=== PATIENT | male | born 1965 | race Caucasian/White ===

== ENCOUNTER 2023-11-02 19:40 | Inpatient (IN) | payer OTHER, SELFPAY ==
--- NOTE | ~2023-11-02 | CT_ITS ---
EXAMINATION: CT ABDOMEN AND PELVIS WITHOUT CONTRAST CLINICAL INFORMATION: Flank pain. No rule out kidney stone. COMPARISON: None available. TECHNIQUE: Multidetector volumetric imaging was performed from the superior aspect of the liver through the pubic symphysis. Sagittal and coronal reformatted images were obtained on the technologist's workstation. This CT examination was performed using dose optimization techniques as appropriate, variously including the following: *Automated exposure control *Adjustment of mA and/or kV according to patient size (this includes techniques or standardized protocols for targeted exams where dose is matched to indication/reason for exam; i.e. extremities or head) *Use of iterative reconstruction technique DLP: 615 mGy-cm FINDINGS: LUNG BASES: Mild bibasilar posterior dependent atelectasis. LIVER, GALLBLADDER, AND BILIARY TREE: 1.7 cm diameter eggshell calcification of the gallbladder lumen consistent with cholelithiasis. Normal appearance of the liver. PANCREAS: Unremarkable. SPLEEN: Unremarkable. ADRENAL GLANDS: Unremarkable. KIDNEYS AND URETERS: A single 4.5 mm x 2 mm calculus is present at the right ureterovesicular junction. Moderate-marked right hydronephrosis and ureterectasis is present. Moderate right perinephric inflammatory changes are identified. No additional urolithiasis identified. Incidental note made of a 3.6 cm rounded benign-appearing low-density simple cyst within the right kidney requiring no additional imaging follow-up. BLADDER: Decompressed GASTROINTESTINAL TRACT: The appendix is not visualized. Curvilinear density is present at the base of the cecum and may represent suture material related to prior appendectomy. No free intraperitoneal fluid or gas collections. ABDOMINAL WALL: No significant hernia is appreciated. LYMPH NODES: Normal. VASCULAR: Mild scattered calcific atherosclerosis PELVIC VISCERA: The prostate measures 4 cm in AP dimension, slightly above the expected limits of normal size. OSSEOUS STRUCTURES: Incidental note made of a synovial inclusion cyst associated with the anterior margin of the right femoral head. Partially visualized mild posterior broad-based disc bulge L5-S1. CT/CT abdomen pelvis wo IV con IMPRESSION: 1. Single 4.5 mm x 2 mm calculus at the right ureterovesicular junction associated with moderate-marked right hydronephrosis and ureterectasis. No additional urolithiasis. 2. Cholelithiasis. 3. Mild diffuse enlargement of the prostate. Electronically signed by: Anatoly López MD 11/03/2023 01:50 AM EDT RP
--- NOTE | ~2023-11-02 | XR_ITS ---
EXAMINATION: XR CHEST CLINICAL INFORMATION: Pain COMPARISON: None available. TECHNIQUE: 2 views of the chest were obtained. FINDINGS: No significant abnormality is noted involving the heart, lungs, mediastinum, bony thorax or soft tissues. XR/XR chest 2V IMPRESSION: Unremarkable examination. Electronically signed by: Cindy Zhang MD 11/02/2023 08:34 PM EDT RP
[2023-11-02 19:48] VITALS: BP 114/72; PULSE 104; RESP 18; TEMP 39.6; O2SAT 94; BMI 26.7
--- NOTE | 2023-11-02 19:52 | ED_ITS ---
HPI - General Adult General Chief complaint: General Medical Stated complaint: fever s/p fish sandwich, food poisoning? Time Seen by Provider: 11/03/23 00:17 Source: patient and family Mode of arrival: ambulatory Limitations: no limitations History of Present Illness ED Provider: Dr. Miley Godinez HPI narrative: patient comes to the emergency room accompanied by his . Patient only speaks Irish. According to the patient and his , 2 days ago patient started complaining of nausea vomiting and diarrhea 3 hours after eating a sandwich with smoked salmon. Then patient went to work. At work, patient started feeling very severe right-sided flank pain. Since then it has been constant. Patient was not able to drive home, called his to pick him up. At home, patient developed a fever of 101.1 temporal. Patient took Tylenol, had chills, did not want to come to the emergency room. Eventually the fever did improve but shortly after it restarted along with the pain. Patient's became concerned, called the PCP, asked to come to the emergency room. At this time, patient states that he feels with chills, right-sided abdominal pain/flank pain. Denies hematuria or dysuria. Related Data Allergies Allergy/AdvReac Type Severity Reaction Status Date / Time procaine [From Novocain] Allergy Anaphylaxis Verified 11/02/23 19:58 Review of Systems 2 Review of Systems: Constitutional : No Weight loss, Complaining of fever and chills,No Night Sweats, No Fatigue, No Malaise ENT/Mouth : No Hearing loss, No Ear Pain, No Nasal Congestion, No Sinus Pain, No Hoarseness, No sore throat, No Rhinorrhea, No Swallowing Difficulty Eyes: No Eye Pain, No Swelling, No Redness, No Foreign Body, No Discharge, No Vision Changes Cardiovascular : No Chest Pain, No SOB, No Dyspnea on Exertion, No Orthopnea, No Edema, No Palpitations Respiratory : No Cough, No Sputum, No Wheezing, No Smoke Exposure, No Dyspnea Gastrointestinal : No Nausea, No Vomiting, No Diarrhea, No Constipation, No abdominal Pain, No Hematochezia, No Melena Genitourinary : no irregular bleeding, No Dysuria, No Urinary Frequency, No Hematuria, No Urinary Incontinence, No Urgency, complaining of right-sided Flank Pain, No Urinary Flow Changes, No Hesitancy Musculoskeletal : No joint pain, No Myalgias, No Joint Swelling Skin : No Skin Lesions, No rash Neuro : No Weakness, No Numbness, No Paresthesias, No Loss of Consciousness, No Dizziness, No Headache Psych : No Anxiety/Panic, No Depression, No SI/HI/AH/VH, No Social Issues, Heme/Lymph: No Bruising, No Bleeding,No Lymphadenopathy Endocrine : No Polyuria, No Polydipsia, No Temperature Intolerance PMFSH Social History Social History Advance Directives: No Advance Directives Information Provided: Yes Do you have a plan to hurt others: No Plan Physical Exam ED Vital Signs: Vital Signs - 24 hr 11/02/23 19:48 11/03/23 00:26 Temperature 103.2 F H 98.2 F Pulse Rate 104 H 73 Respiratory Rate 18 16 Blood Pressure 114/72 115/73 Pulse Oximetry 94 95 Oxygen Delivery Method Room Air Room Air BMI result Body Mass Index 26.7 Course Course Course Narrative: RME, this is a rapid medical exam performed by Jaylen Ruano please refer to primary provider for complete H&P- 58-year-old male presents for evaluation of fever, generalized abdominal pain and weakness. He is status post appendectomy. Denies any coughing. His temp is a 103.2?. Plan for labs, UA, chest x-ray, viral swabs Medications Administered Discontinued Medications Generic Name Dose Route Start Last Admin Trade Name Roberto Carlosq PRN Reason Stop Dose Admin Acetaminophen 975 mg 11/02/23 19:55 11/02/23 20:12 Acetaminophen 325 Mg Tablet PO 11/02/23 19:56 975 mg ONCE ONE Administration Sodium Chloride 2,599.08 mls @ 2,599.08 mls/hr 11/03/23 00:16 11/03/23 00:40 Ns 30 ml/kg infuse over 1 hr (2599.08 ml) 11/03/23 01:15 2,599.08 mls/hr IV Administration .Q1H STA Ceftriaxone Sodium 1 gm/ 50 mls @ 100 mls/hr 11/03/23 00:16 11/03/23 00:39 Sodium Chloride IV 11/03/23 00:45 100 mls/hr ONCE ONE Administration Medical Decision Making Medical Decision Making [facility] Narrative: my interpretation of labs: White blood cell count 12.9, LFTs and lipase no significant abnormality. Urine positive for UTI. Serology negative for influenza RSV and COVID. - My interpretation of CT scan: Right ureterolithiasis with right hydronephrosis - I discussed the above-mentioned with the patient, patient is to be admitted, agrees with plan. - I discussed the patient with Dr. Chance, patient accepted to the medicine service Differential Diagnosis Differential Diagnoses: The differential diagnosis associated with the presentation includes ( UTI, pyelonephritis, ureterolithiasis) Admission/Observation Consideration of admission/observation: Escalation of care including admission/observation considered Consult Healthcare Provider Management of the patient was discussed with: Hospitalist Lab Data MDM Lab Attestation statement: I reviewed the patient's lab results. 11/02/23 20:38 11/02/23 20:37 Labs: Lab Results 11/02/23 11/02/23 11/03/23 Range/Units 20:37 20:38 00:36 WBC 12.9 H (4.8-10.8) X10*3/uL RBC 5.23 (4.60-5.80) X10*6/uL Hgb 16.0 (14.0-18.0) g/dl Hct 46.4 (42.0-52.0) % MCV 88.7 (80.0-98.0) fL MCH 30.6 (27.0-33.0) pg MCHC 34.5 (31.0-36.0) g/dl RDW 12.9 (11.0-16.0) % Plt Count 89 L (160-400) X10*3/uL MPV 11.5 (9.4-12.4) fL Immature Gran % (Auto) 1.0 H (0.0-0.4) % Neut % (Auto) 87.5 H (45-73) % Lymph % (Auto) 3.6 L (20-40) % [place] % (Auto) 6.5 (2-11) % Eos % (Auto) 0.9 (0-4) % Baso % (Auto) 0.5 (0-2) % Lymph # (Auto) 0.5 L (1.2-4.9) X10*3/uL [place] # (Auto) 0.8 (0.1-1.2) X10*3/uL Eos # (Auto) 0.1 (0.0-0.4) X10*3/uL Baso # (Auto) 0.1 (0.0-0.2) X10*3/uL Abs Immat Gran (auto) 0.13 H (0.00-0.03) X10*3/uL Absolute Neuts (auto) 11.3 H (2.0-8.3) x10*3/uL Absolute Nucleated RBC 0.000 (0.0-0.012) X10*3/uL Nucleated RBC % (auto) 0.0 (0.0-0.2) /100WBC Smear Tech's Comments VERIFIED Sodium 136 (135-145) mmol/L Potassium 3.7 (3.3-5.1) mmol/L Chloride 105 (96-108) mmol/L Carbon Dioxide 21 L (22-29) mmol/L Anion Gap 14 (12-20) BUN 21 H (9-16) mg/dL Creatinine 1.71 H (0.5-1.4) mg/dL Estim Creat Clear Calc 47.4 Estimated GFR 41 Random Glucose 114 (60-115) mg/dL Lactic Acid 1.5 1.1 (0.5-2.0) mmol/L Calcium 9.4 (8.4-10.2) mg/dL Total Bilirubin 1.8 H (0.0-1.0) mg/dL AST 20 (5-37) U/L ALT 15 (0-40) U/L Alkaline Phosphatase 57 (39-117) U/L Total Protein 7.1 (6.5-8.0) g/dL Albumin 4.2 (3.5-5.0) g/dL Lipase 6 L (8-78) U/L Urine Color Dark Yellow Urine Appearance Turbid Urine pH 5.5 (5.0-9.0) Ur Specific [place] 1.025 (1.005-1.025) Urine Protein 100 (2+) H (Neg-Trace) mg/dL Urine Glucose (UA) Negative (Negative) mg/dL Urine Ketones Trace (Negative) mg/dL Urine Blood Large (3+) H (Negative) Urine Nitrite Positive H (Negative) Ur Leukocyte Esterase Large (3+) H (Negative) Urine RBC 3-5 H (0-2) /HPF Urine WBC >50 H (0-5) /HPF Ur Squamous Epith Cells 3-5 (0-2) /HPF Urine Bacteria 4+ (None Seen) Hyaline Casts 0-2 (0-2) /LPF Influenza Type A (PCR) NEGATIVE (Negative) Influenza Type B (PCR) NEGATIVE (Negative) RSV RNA Qual (PCR) NEGATIVE (Negative) SARS-CoV-2 RNA (RT-PCR) NEGATIVE (Negative) Independent Interpretation I performed an independent interpretation of an: CT Scan Radiology Impression Discussion of test interpretation with radiology: I have reviewed the radiologist's reading. Radiologist Impression: FINDINGS: LUNG BASES: Mild bibasilar posterior dependent atelectasis. LIVER, GALLBLADDER, AND BILIARY TREE: 1.7 cm diameter eggshell calcification of the gallbladder lumen consistent with cholelithiasis. Normal appearance of the liver. PANCREAS: Unremarkable. SPLEEN: Unremarkable. ADRENAL GLANDS: Unremarkable. KIDNEYS AND URETERS: A single 4.5 mm x 2 mm calculus is present at the right ureterovesicular junction. Moderate-marked right hydronephrosis and ureterectasis is present. Moderate right perinephric inflammatory changes are identified. No additional urolithiasis identified. Incidental note made of a 3.6 cm rounded benign-appearing low-density simple cyst within the right kidney requiring no additional imaging follow-up. BLADDER: Decompressed GASTROINTESTINAL TRACT: The appendix is not visualized. Curvilinear density is present at the base of the cecum and may represent suture material related to prior appendectomy. No free intraperitoneal fluid or gas collections. ABDOMINAL WALL: No significant hernia is appreciated. LYMPH NODES: Normal. VASCULAR: Mild scattered calcific atherosclerosis PELVIC VISCERA: The prostate measures 4 cm in AP dimension, slightly above the expected limits of normal size. OSSEOUS STRUCTURES: Incidental note made of a synovial inclusion cyst associated with the anterior margin of the right femoral head. Partially visualized mild posterior broad-based disc bulge L5-S1. CT/CT abdomen pelvis wo IV con IMPRESSION: 1. Single 4.5 mm x 2 mm calculus at the right ureterovesicular junction associated with moderate-marked right hydronephrosis and ureterectasis. No additional urolithiasis. 2. Cholelithiasis. 3. Mild diffuse enlargement of the prostate. Critical Care Time Critical Care Time Critical Care Time: Yes Total Critical Care Time: 60 Attestation: I have personally provided critical care time. Time includes review of lab data, radiology results, discussion with consultants, and monitoring for potential decompensation. Intervention performed as documented. Discharge Plan Discharge Clinical Impression: Ureterolithiasis, Acute pyelonephritis Patient Disposition: Admitted As Inpatient Print Language: Honduran
[2023-11-02] MEDS: Acetaminophen 325 MG TABLET 975 MG PO (20:12)
[2023-11-02 20:50] LABS: Appearance Urine Turbid; Color Urine Dark Yellow; Glucose Urine UA Negative (Negative); Leukocyte Esterase Urine Large (3+) (Negative); Nitrite Urine Positive (Negative); PH 5.5 (5.0-9.0); Specific Gravity - Urine 1.025 (1.005-1.025); UMIC TRIGGER UACC YES; Urine Blood Large (3+) (Negative); Urine Ketones Trace mg/dL (Negative); Urine Protein 100 (2+) mg/dL (Neg-Trace)
[2023-11-02 20:55] LABS: Monocytes Percent Auto 6.5 % (2-11); PLT CLUMP 1; Red Cell Distribution Width 12.9 % (11.0-16.0); SCAN SMEAR FLAG 1
[2023-11-02 20:57] LABS: Lactic Acid 1.5 mmol/L (0.5-2.0)
[2023-11-02 20:57] LABS: Basophils Absolute Auto 0.1 X10*3/uL (0.0-0.2); Basophils Percent Auto 0.5 % (0-2); Eosinophils Absolute Auto 0.1 X10*3/uL (0.0-0.4); Eosinophils Percent Auto 0.9 % (0-4); Hematocrit 46.4 % (42.0-52.0); Imm Gran Abs Auto 0.13 X10*3/uL (0.00-0.03); Lymphocytes Absolute Auto 0.5 X10*3/uL (1.2-4.9); Lymphocytes Percent Auto 3.6 % (20-40); MANUAL DIFF FLAG SCAN; Mean Corpuscular HGB Conc 34.5 g/dl (31.0-36.0); Mean Corpuscular Hemoglobin 30.6 pg (27.0-33.0); Mean Corpuscular Volume 88.7 fL (80.0-98.0); Mean Platelet Volume 11.5 fL (9.4-12.4); Monocytes Absolute Auto 0.8 X10*3/uL (0.1-1.2); Neutrophils Absolute Auto 11.3 x10*3/uL (2.0-8.3); Neutrophils Percent Auto 87.5 % (45-73); Red Blood Count 5.23 X10*6/uL (4.60-5.80)
[2023-11-02 21:02] LABS: Alanine Aminotransferase 15 U/L (0-40); Albumin Level 4.2 g/dL (3.5-5.0); Alkaline Phosphatase 57 U/L (39-117); Anion Gap 14 (12-20); Aspartate Amino Transferase 20 U/L (5-37); Bilirubin Total 1.8 mg/dL (0.0-1.0); Blood Urea Nitrogen 21 mg/dL (9-16); Calcium 9.4 mg/dL (8.4-10.2); Carbon Dioxide 21 mmol/L (22-29); Chloride 105 mmol/L (96-108); Creatinine Clr Calc Pharmacy 47.4; Estimated Glomerular Filt Rate 41; Glucose Random 114 mg/dL (60-115); Lipase 6 U/L (8-78); Potassium 3.7 mmol/L (3.3-5.1); Sodium 136 mmol/L (135-145); Total Protein 7.1 g/dL (6.5-8.0)
[2023-11-02 21:13] LABS: Platelet Count 89 X10*3/uL (160-400); White Blood Count 12.9 X10*3/uL (4.8-10.8)
[2023-11-02 21:24] LABS: Influenza A PCR NEGATIVE (Negative); Influenza B PCR NEGATIVE (Negative); Resp Syncy Virus RNA Qual PCR NEGATIVE (Negative); SARS COV2 PCR INHOUSE NEGATIVE (Negative)
[2023-11-02 21:29] LABS: Bacteria Urine 4+ (None Seen); Hyaline Casts Urine 0-2 /LPF (0-2); UACC Culture Trigger YES; WBC Urine >50 /HPF (0-5)
[2023-11-02 21:38] LABS: SLIDE REVIEW VERIFIED
[2023-11-03] VITALS (8 sets, daily range): BP systolic 115–143; BP diastolic 73–80; PULSE 73–93; RESP 14–20; TEMP 36.8–38.1; O2SAT 92–99
[2023-11-03] MEDS: cefTRIAXone sodium 1 GM in 0.9 % Sodium Chloride 50 ML IV (00:39)
[2023-11-03 00:54] LABS: Lactic Acid 1.1 mmol/L (0.5-2.0)
--- OUTSIDE RECORDS SUMMARY | 2023-11-03 01:19 | XMS_ITS | Continuity of Care Document ---
Author Organization [facility] Adult Address [address] [place] [address]- Care Team Providers Care Luster Applicator Name Role Phone Sho Lyman NP Primary Care Physician Encounter [facility] Date(s): 11/28/20 - 12/28/20 [facility] [address] [place] [id number] Allergies, Adverse Reactions, Alerts Substance Reaction Severity Status lidocaine Active Novocain Active Immunizations Given and Recorded Vaccine Date Status Refusal Reason Hepatitis A Adult Vaccine 01/31/18 Recorded Hepatitis A Adult Vaccine 04/28/17 Recorded Medications aspirin 81 mg oral tablet 1 tablet = 81 mg, By Mouth, Daily, 0 Refills, Maintenance, 10/14/17 8:35:15 EDT Start Date: 10/14/17 Status: Ordered Fish Oil By Mouth, 0 Refills, Maintenance, 09/25/20 11:00:00 EDT, Partial fill upon patient request if the prescription is for a schedule II opioid drug. Start Date: 09/25/20 Status: Ordered Multivitamin Tablet By Mouth, Daily, 0 Refills, Maintenance, 10/14/17 8:35:06 EDT Start Date: 10/14/17 Status: Ordered Problem List Condition Effective Dates Status Health Status Inform ant Liver cirrhosis(Confirmed) Active Gall stones(Confirmed) Active History of TB (tuberculosis)(Confirmed) Active Hepatitis C virus infection cured after antiviral drug therapy(Confirmed) Active Hepatic steatosis(Confirmed) Active Tobacco use(Confirmed) Active Social History Social History Type Response Smoking Status Former smoker, quit more than 30 days ago; Other: Pt quit smoking 09/2020; entered on: 10/15/20 Sex
--- OUTSIDE RECORDS SUMMARY | 2023-11-03 01:19 | XMS_ITS | Continuity of Care Document ---
Author Organization [facility] Adult Address [address] [place] [address]- Care Team Providers Care Strip Presser Name Role Phone Tabatha Pulido Primary Care Physician En[place] [facility] Date(s): 11/09/19 - 12/09/19 [facility] [address] [place] [address] [facility] Allergies, Adverse Reactions, Alerts Substance Reaction Severity Status Novocain Active Medications aspirin 81 mg oral tablet 1 tablet = 81 mg, By Mouth, Daily, 0 Refills, Maintenance, 10/14/17 8:35:15 EDT Start Date: 10/14/17 Status: Ordered Multivitamin Tablet By Mouth, Daily, 0 Refills, Maintenance, 10/14/17 8:35:06 EDT Start Date: 10/14/17 Status: Ordered Social History Social History Type Response Smoking Status Current every day sm oker; Tobacco user in household: No entered on: 10/14/17 Sex
--- OUTSIDE RECORDS SUMMARY | 2023-11-03 01:20 | XMS_ITS | Continuity of Care Document ---
Author Organization [facility] Address [address] [place] [address]- Care Team Providers Care Power Reactor Supervisor Name Role Phone Tabatha Pulido Primary Care Physician Encounter [facility] Date(s): 11/05/19 - 12/05/19 [facility] [address] [place] [phone]- [facility] Allergies, Adverse Reactions, Alerts Substance Reaction [...]
--- OUTSIDE RECORDS SUMMARY | 2023-11-03 01:20 | XMS_ITS | Continuity of Care Document ---
Author Organization [facility] Address [address] [place] [address]- Care Team Providers Care System Safety Engineer Name Role Phone Sho Lyman NP Primary Care Physician [phone] Encounter [facility] [id number] Date(s): 02/23/23 - 03/25/23 [facility] [address] [place] [phone]- Attending Physician: Silverio Clinton Admitting Physician: Silverio Clinton Referring Physician: trSilverio Allergies, Adverse Reactions, Alerts Substance Reaction Severity Status lidocaine Active Novocain Active Immunizations Given and Recorded Vaccine Date Status Refusal Reason Hepatitis A Adult Vaccine 01/31/18 Recorded Hepatitis A Adult Vaccine 04/28/17 Recorded Medications Fish Oil By Mouth, 0 Refills, Maintenance, 09/25/20 11:00:00 EDT, Partial fill upon patient request if the prescription is for a schedule II opioid drug. Start Date: 09/25/20 Status: Ordered Magnesium and Potassium oral capsule 1 capsule, By Mouth, Daily, 0 Refills, Maintenance, 02/23/23 15:35:00 EST, Partial fill upon patient request if the prescription is for a schedule II opioid drug. Start Date: 02/23/23 Status: Ordered Multivitamin Tablet By Mouth, Daily, 0 Refills, Maintenance, 10/14/17 8:35:06 EDT Start Date: 10/14/17 Status: Ordered Problem List Condition Confirmation Course Effective Dates Status H ealth Status Informant Liver cirrhosis Confirmed Active Gall stones Confirmed Active History of TB (tuberculosis) Confirmed Active Hyperlipidemia Confirmed Active IFG (impaired fasting glucose) Confirmed Active Hepatitis C virus infection cured after antiviral drug therapy Confirmed Active Hepatic steatosis Confirmed Active Tobacco use Confirmed Active Social History Social History Type Response Smoking Status Former smoker, quit more than 30 days ago; Other: Pt quit smoking 09/2020; Tobacco use times per day: smoked for 20-25 year 7 cigarettes per day; entered on: 11/01/22 Sex Laboratory * Event Display: Non BH Lab Results Authored Date: * Event Display: Non BH Lab Results Authored Date: * Event Display: Non BH Lab Results Authored Date: Radiology * Event Display: Ultrasound Abdomen, Non-BH Authored Date: * Event Display: Ultrasound Abdomen, Non-BH Authored Date: Patient Care team information Care Team Personnel Name: Shailesh Machado MD Position: [facility] Physician - Gastroenterology Member Role: Lifetime Consulting Physician Address: Address: [address] [place] [address], [facility] [address] [facility] [place] [address]- Name: Jesi Elaine RN Position: S RN Member Role: Primary Care Nurse Name: Mary Valadez RN Position: S RN Member Role: Primary Care Nurse Name: Sho Lyman NP Position: [facility] PCO Associate Professional Member Role: PCP Address: Address: [address] [place] [phone]- [place] Name: Juan Manuel Gill RN Position: S RN Member Role: Primary Care Nurse Name: Milind Cooley RN Position: S RN Member Role: Primary Care Nurse Name: Virgen Quezada RN Position: S RN Member Role: Primary Care Nurse Care Team Related Persons Name: NEFTALY TEJADA Address: home [address] [place] [address]
--- OUTSIDE RECORDS SUMMARY | 2023-11-03 01:20 | XMS_ITS | Continuity of Care Document ---
Author Organization [facility] Address [address] [place] [address]- Care Team Providers Care Manager Architectural Name Role Phone Sho Lyman NP Primary Care Physician [phone] Encounter [facility] Date(s): 12/04/20 - 01/03/21 [facility] [address] [place] [address]- Allergies, Adverse Reactions, Alerts Substance Reaction Severity [...]
--- OUTSIDE RECORDS SUMMARY | 2023-11-03 01:20 | XMS_ITS | Continuity of Care Document ---
Author Organization [facility] Adult Address [address] [place] [address]- Care Team Providers Care Civil Engineer In Training Name Role Phone Sho Lyman NP Primary Care Physician [phone] [place] [facility] Date(s): 05/04/22 - 06/03/[address] [address]- Allergies, Adverse Reactions, Alerts Substance Reaction Severity [...] List Condition Confirmation Course Effective Dates Status Health St [facility] Informant Liver cirrhosis Confirmed Active Gall stones Confirmed Active History of TB (tuberculosis) Confirmed Active Hepatitis C virus infection cured after antiviral drug therapy Confirmed Active Hepatic steatosis Confirmed Active Tobacco use Confirmed Active Social History Social History Type Response Smoking Status Former smoker, quit more than 30 days ago; Other: Pt quit smoking 09/2020; entered on: 10/15/20 Sex Patient Care team information Care Team Personnel Name: Shailesh Machado MD Position: [facility] Member Role: Lifetime Consulting Physician Address: Address: [address] [place] [address], [address] [facility] [place] [address]- Name: Argentina WELDON, Jesi Schulz Position: S RN Member Role: Primary Care Nurse Name: Mary Valadez RN Position: S RN Member Role: Primary Care Nurse Name: Sho Lyman NP Position: [facility] PCO Associate Professional Member Role: PCP Address: Address: [address] [place] [address]- Name: Juan Manuel Gill RN Position: S RN Member Role: Primary Care Nurse Name: Milind Cooley RN Position: S RN Member Role: Primary Care Nurse Name: Virgen Quezada RN Position: S RN Member Role: Primary Care Nurse Care Team Related Persons Name: NEFTALY TEJADA Address: home [address] [place] [address]
--- OUTSIDE RECORDS SUMMARY | 2023-11-03 01:20 | XMS_ITS | Continuity of Care Document ---
Author Organization [facility] Address [address] [place] [address] ve [address] [place] [address]- Care Team Providers Care Ecommerce Manager Name Role Phone Sho Lyman NP Primary Care Physician Encounter [facility] Date(s): 09/18/20 - 10/18/20 [facility] [address] [place] [address]- Allergies, Adverse Reactions, Alerts Substance Reaction Severity [...]
--- OUTSIDE RECORDS SUMMARY | 2023-11-03 01:20 | XMS_ITS | Continuity of Care Document ---
Author Organization [facility] Address [address] [place] [address]- Care Team Providers Care Sap Plant Maintenance Consultant Name Role Phone Sho Lyman NP Primary Care Physician En[place] [facility] [place] Date(s): 10/31/20 - 11/30/20 [facility] [address] [place] [address]- [place] Allergies, Adverse Reactions, Alerts Substance Reaction Severity Status lidocaine Active Novocain Active Immunizations Given and Recorded Vaccine Date Status Refusal Reason Hepatitis A Adult Vaccine 01/31/18 Recorded Hepatitis A Adult Vaccine 04/28/17 Recorded Medications aspirin 81 mg oral tablet 1 tablet = 81 mg, By Mouth, Daily, 0 Refills, Maintenance, 10/14/17 8:35:15 EDT Start Date: 10/14/17 Status: Ordered benzonatate 100 mg oral capsule 1 capsule = 100 mg, By Mouth, 3 times a day, for 14 days, # 42 capsule, 0 Refills, Acute 12/10/20 11:09:00 EDT, 11/26/20 11:09:00 EDT, Capsule, [id number], Partial fill upon patient request if the prescription is for a schedule II opioid drug.... Start Date: 11/26/20 Stop Date: 12/10/20 Status: Ordered Fish Oil By Mouth, 0 [...]
--- OUTSIDE RECORDS SUMMARY | 2023-11-03 01:20 | XMS_ITS | Continuity of Care Document ---
Author Organization [facility] Address [address] [place] [address]- Care Team Providers Care Unloading Checker Name Role Phone Sho Lyman NP Primary Care Physician [phone] [place] [facility] [place]): 08/06/22 - 09/05/22 [facility] [address] [place] [address]- Allergies, Adverse Reactions, Alerts Substance Reaction Severity [...] Team Personnel Name: Shailesh Machado MD Position: [facility] Physician - Gastroenterology Member Role: Lifetime Consulting Physician Address: Address: [address] [place] [address], [facility] [address] [facility] [place] [address]- Name: Jesi Elaine RN Position: S RN Member Role: Primary Care Nurse Name: Mary Valadez RN Position: S RN Member Role: Primary Care Nurse Name: Sho Lyman NP Position: [facility] PCO Associate Professional Member Role: PCP Address: Address: [address] [place] [address]- Name: Juan Manuel Gill RN Position: [facility] RN Member Role: Primary Care Nurse Name: Milind Cooley RN Position: [facility] RN Member Role: Primary Care Nurse Name: Virgen Quezada RN Position: [facility] RN Member Role: Primary Care Nurse Care Team Related Persons Name: NEFTALY TEJADA Address: home [address] [place] [address]
--- OUTSIDE RECORDS SUMMARY | 2023-11-03 01:20 | XMS_ITS | Continuity of Care Document ---
Author Organization [facility] Address [address] [place] [address] [address] [place] [address]- Care Team Providers Care 3D Designer Name Role Phone Sho Lyman NP Primary Care Physician [place] [facility] [place]/20 - 10/02/[address] [place], [place] [address] Attending Physician: Hansa Hughes MD Allergies, Adverse Reactions, Alerts Substance Reaction Severity Status lidocaine Active Novocain Active Medications aspirin 81 mg oral [...] 8:35:06 EDT Start Date: 10/14/17 Status: Ordered Readi-Cat 2 oral suspension See Instructions, Drink first bottle the night prior to CT scan between midnight and 2 am. Drink second bottle [address] scan[address] # 2 each, 0 Refills, Maintenance, 10/01/20 14:09:00 EDT, [id number], Partial fill upon patient request... Start Date: 10/01/20 Status: Ordered Problem List Condition Effective Dates Status Health Status Inform ant Liver cirrhosis(Confirmed) Active Gall stones(Confirmed) Active History of TB (tuberculosis)(Confirmed) Active Hepatitis C virus infection cured after antiviral drug therapy(Confirmed) Active Hepatic steatosis(Confirmed) Active Tobacco use(Confirmed) Active Vital Signs Most recent to oldest [Reference Range]: 1 Height 180 cm (09/25/20 10:56 AM) Temperature [96.8-100.4 DegF] 97.7 DegF (09/25/20 10:56 AM) Blood pressure sites Arm, right (09/25/20 10:56 AM) Temperature Route Temporal (09/25/20 10:56 AM) Social History Social History Type Response Tobacco Use: 4 or less cigar ettes(less than 1/4 pack)/day in last 30 days. Other: 1/3 PPD. Sex
--- OUTSIDE RECORDS SUMMARY | 2023-11-03 01:20 | XMS_ITS | Continuity of Care Document ---
Author Organization [facility] Address [address] [place] [address]- Care Team Providers Care Toter Name Role Phone Josefina MONTERO, Herbie Primary Care Physician Encounter [facility] [place] Date(s): 05/05/20 - 06/04/20 [facility] [address] [place] [address]- Allergies, Adverse Reactions, Alerts Substance Reaction Severity [...] Active Social History Social History Type Response Tobacco Use: 4 or less cigar ettes(less than 1/4 pack)/day in last 30 days. Other: 1/3 PPD. Sex
--- OUTSIDE RECORDS SUMMARY | 2023-11-03 01:20 | XMS_ITS | Continuity of Care Document ---
Author Organization [facility] Adult Address [address] [place] [address]- Care Team Providers Care Practice Clinician Name Role Phone Sho Lyman NP Primary Care Physician [place] [facility] [place] Date(s): 12/10/20 - 01/09/21 [facility] [address] [place] [address]- Allergies, Adverse Reactions, Alerts Substance Reaction Severity [...]
--- OUTSIDE RECORDS SUMMARY | 2023-11-03 01:20 | XMS_ITS | Continuity of Care Document ---
Author Organization [facility] Adult Address [address] [place] [address]- Care Team Providers Care Lead Software Test Engineer Name Role Phone Sho Lyman NP Primary Care Physician [phone] Encounter [facility] Date(s): 11/26/20 - 12/26/20 [facility] Adult [address] [place] [address] Allergies, Adverse Reactions, Alerts Substance Reaction Severity [...]
--- OUTSIDE RECORDS SUMMARY | 2023-11-03 01:20 | XMS_ITS | Continuity of Care Document ---
Author Organization [facility] Address [address] [place] [address]- Care Team Providers Care Fitter Type Bar And Segment Name Role Phone Sho Lyman NP Primary Care Physician [phone] [place] [facility] [place]21 - 04/24/21 [facility] [address] [place] [address]- Attending Physician: Silverio Clinton Admitting Physician: AdmSilverio gandhi Referring Physician: AdmtrSilverio Allergies, Adverse Reactions, Alerts Substance Reaction Severity Status lidocaine Active Novocain Active Immunizations Given and Recorded Vaccine Date Status Refusal Reason Hepatitis A Adult Vaccine 01/31/18 Recorded Hepatitis A Adult Vaccine 04/28/17 Recorded Medications acetaminophen 325 mg oral tablet 650 mg, 2, tablet, By Mouth, Every 6 hours, Refills 0, Maintenance, 04/14/21 10:47:00 EST, Partial fill upon patient request if the prescription is for a schedule II opioid drug. Start Date: 04/14/21 Status: Ordered Fish Oil By Mouth, 0 Refills, Maintenance, 09/25/20 11:00:00 EDT, Partial fill upon patient request if the prescription is for a schedule II opioid drug. Start Date: 09/25/20 Status: Ordered levoFLOXacin 750 mg oral tablet 1 tablet = 750 mg, By Mouth, Every 24 hours, # 3 tablet, 0 Refills, Maintenance, 04/14/21 10:48:00 EST, Tablet, [facility], Partial fill upon patient request if the prescription is for a schedule II opioid drug., 180, cm, 04/14/21 7:40:0... Start Date: 04/14/21 Stop Date: 04/21/21 Status: Ordered metroNIDAZOLE 500 mg oral tablet 1 tablet = 500 mg, By Mouth, 3 times a day, do not drink alcohol. may take with food to minimize abdominal discomfort, # 9 tablet, 0 Refills, Maintenance, 04/14/21 10:50:00 EST, Tablet, [facility], Partial fill upon patient request if... Start Date: 04/14/21 Stop Date: 04/17/21 Status: Ordered Multivitamin Tablet By Mouth, Daily, [...]
--- OUTSIDE RECORDS SUMMARY | 2023-11-03 01:20 | XMS_ITS | Continuity of Care Document ---
Author Organization [facility] Adult Address [address] [place] [address]- Care Team Providers Care Cord Maker Name Role Phone Sho Lyman NP Primary Care Physician [phone] [place] [facility] [place] 11/11/22 - 12/11/[address] [address]- Allergies, Adverse Reactions, Alerts Substance Reaction Severity [...] cigarettes per day; entered on: 11/01/22 Sex Patient Care team information Care Team Personnel Name: Shailesh Machado MD Position: [facility] Physician - Gastroenterology Member Role: Lifetime Consulting Physician Address: Address: [address] [place] [address], [address] [facility] [place] [address]- [place] Name: Jesi Elaine RN Position: S RN Member Role: Primary Care Nurse Name: Mary Valadez RN Position: S RN Member Role: Primary Care Nurse Name: Sho Lyman NP Position: [facility] PCO Associate Professional Member Role: PCP Address: Address: [address] [place] [address]- Name: Juan Manuel Gill RN Position: S RN Member Role: Primary Care Nurse Name: Milind Cooley RN Position: S RN Member Role: Primary Care Nurse Name: Virgen Quezada RN Position: S RN Member Role: Primary Care Nurse Care Team Related Persons Name: NEFTALY TEJADA Address: home [address] [place] [address]
--- OUTSIDE RECORDS SUMMARY | 2023-11-03 01:20 | XMS_ITS | Continuity of Care Document ---
Author Organization [facility] Adult Address [address] [place] [address]- Care Team Providers Care Electrolytic Etcher Name Role Phone Sho Lyman NP Primary Care Physician [place] [facility] [place] 11/09/22 - 12/09/[address] [address]- Allergies, Adverse Reactions, Alerts Substance Reaction Severity [...] Team Personnel Name: Shailesh Machado MD Position: [facility] Physician - Gastroenterology Member Role: Lifetime Consulting Physician Address: Address: [address] [place] [address], [address] [facility] [place] [address]- [place] Name: Jesi Elaine RN Position: S RN Member Role: Primary Care Nurse Name: Mary Valadez RN Position: S RN Member Role: Primary Care Nurse Name: Sho Lyman NP Position: [facility] PCO Associate Professional Member Role: PCP Address: Address: [address] [place] [address]- Name: Juan Manuel Gill RN Position: S RN Member Role: Primary Care Nurse Name: Milind Cooley RN Position: S RN Member Role: Primary Care Nurse Name: Virgen Quezada RN Position: S RN Member Role: Primary Care Nurse Care Team Related Persons Name: NEFTALY TEJADA Address: home [address] [place] [address]
--- OUTSIDE RECORDS SUMMARY | 2023-11-03 01:20 | XMS_ITS | Continuity of Care Document ---
Author Organization [facility] Address [address] [place] [address]- Care Team Providers Care Juice Standardizer Name Role Phone Josefina MONTERO, Herbie Primary Care Physician [phone] En[place] [facility] [place] Date(s): 05/02/20 - 06/01/20 [facility] [address] [place] [address]- Allergies, Adverse Reactions, Alerts Substance Reaction Severity [...]
--- OUTSIDE RECORDS SUMMARY | 2023-11-03 01:20 | XMS_ITS | Continuity of Care Document ---
Author Organization [facility] Adult Address [address] [place] [address]- Care Team Providers Care Dispatcher Radioactive Waste Disposal Name Role Phone Sho Lyman NP Primary Care Physician [phone] Encounter [facility] [place] Date(s): 10/18/23 - 10/25/[address] [address]- Encounter Diagnosis Hepatitis C virus infection cured after antiviral drug therapy(Discharge Diagnosis) - 10/18/23 Immunization counseling(Discharge Diagnosis) - 10/18/23 Liver cirrhosis(Discharge Diagnosis) - 10/18/23 IFG (impaired fasting glucose)(Discharge Diagnosis) - 10/18/23 History of TB (tuberculosis)(Discharge Diagnosis) - 10/18/23 Hepatic steatosis(Discharge Diagnosis) - 10/18/23 Hyperlipidemia(Discharge Diagnosis) - 10/18/23 Adult general medical exam(Discharge Diagnosis) - 10/18/23 Attending Physician: Sho Lyman NP Allergies, Adverse Reactions, Alerts Substance Reaction Severity [...] steatosis Confirmed Active Tobacco use Confirmed Active Diagnosis Diagnosis Type Effective Dates Health Status Clinical Service Informant Immunization counseling Discharge Diagnosis 10/18/23 Liver cirrhosis Discharge Diagnosis 10/18/23 IFG (impaired fasting glucose) Discharge Diagnosis 10/18/23 History of TB (tuberculosis) Discharge Diagnosis 10/18/23 Hepatic steatosis Discharge Diagnosis 10/18/23 Hyperlipidemia Discharge Diagnosis 10/18/23 Adult general medical exam Discharge Diagnosis 10/18/23 Hepatitis C virus infection cured after antiviral drug therapy Discharge Diagnosis 10/18/23 Vital Signs Most recent to oldest [Reference Range]: 1 Height 179.6 cm (10/18/23 9:20 AM) Weight 88.5 kg (10/18/23 9:20 AM) Oxygen Saturation [94-100 %] 95 % (10/18/23 9:20 AM) Pulse Rate [55-90 bpm] 77 bpm (10/18/23 9:20 AM) Body Mass Index [18.5-24.99 kg/m2] 27.44 kg/m2 *H* (10/18/23 9:20 AM) Blood Pressure [90-138/55-84 mm Hg] 122/ 77mm Hg (10/18/23 9:20 AM) Temperature [96.8-100.4 DegF] 98.3 DegF (10/18/23 9:20 AM) Mode of Delivery (Oxygen) Room air (10/18/23 9:20 AM) Blood pressure sites Arm, left (10/18/23 9:20 AM) Temperature Route Oral (10/18/23 9:20 AM) Weight Obtained Via Standing scale (10/18/23 9:20 AM) Social History Social History Type Response Smoking Status Former smoker, quit more than 30 days ago; Other: Pt quit smoking 09/2020; Tobacco use times per day: smoked for 20-25 year 7 cigarettes per day; entered on: 11/01/22 Sex Note * Salma Hernandes: PERFORM Event Display: Patient Education/Instruction Authored Date: [id number] Ambulatory Adult Visit Summary [facility] [address] [place], [place] [id number] Name: CHRISTINE TEJADA : 1965?? Visit: 10/18/2023 09:19?? Ambulatory Visit Instructions ?? Your Care Team Primary Care Provider Sho Lyman NP? This Visit Provider Sho Lyman NP Your Diagnosis Elevated fasting blood sugar HLD (hyperlipidemia) Immunization counseling Liver cirrhosis IFG (impaired fasting glucose) History of TB (tuberculosis) Hepatic steatosis Hyperlipidemia Adult general medical exam Hepatitis C virus infection cured after antiviral drug therapy Vitals Signs Temperature: 98.3 DegF Height: 179.6 cm Pulse Rate: 77 bpm Weight: 88.5 kg Systolic Blood Pressure: 122 mm Hg Body Mass Index:??27.44 kg/m2??High Diastolic Blood Pressure: 77 mm Hg Body surface area: 2.1 Oxygen Saturation: 95 % ?? What to do next Follow-Up Appointments Follow Up with??Sho Lyman NP When:??10/17/2024 09:10 AM EDT Why: Physical Where: [address] [place] [address]- Future Orders Hemoglobin A1C (Monitoring) - Once, *Est. 11/08/22, Order for Today?? CBC - Routine, Once, 10/18/23 9:27:00 EDT, Order for Today, [facility], Blood?? Comprehensive Metabolic Panel - Routine, Once, 10/18/23 9:27:00 EDT, Order for Today, [facility], Blood?? Hemoglobin A1C (Monitoring) - Routine, Once, 10/18/23 9:28:00 EDT, Order for Today, [facility], Blood?? Lipid Panel - Routine, Once, 10/18/23 9:28:00 EDT, Order for Today, [facility], Blood?? PSA Screen - Routine, Once, 10/18/23 9:28:00 EDT, Future Order, [facility], Blood?? Medications The list below reflects the information in our records and provided by you today along with any changes made during this visit. Please continue your medications until treatment is completed or stopped by your provider. If this is different from the information you have or there are other questions,please contact the prescribing provider. What How Much When Instructions Unchanged Multivitamin (Multivitamin Tablet) Oral Daily Unchanged Multivitamin With Minerals (Magnesium and Potassium oral capsule) 1 capsule Oral Daily Unchanged Mcfaddin-3 Polyunsaturated Fatty Acids (Fish Oil) Oral Test Performed Below is a partial list of the tests performed during your Visit. You may have had other tests and procedures not included in this list. Please discuss all test results with your provider. CBC?-- Results Pending -- Comprehensive Metabolic Panel?-- Results Pending -- Hemoglobin A1C (Monitoring)?-- Results Pending -- Lipid Panel?-- Results Pending -- PSA Screen?-- Results Pending -- Medications and Immunizations Administered Medications Given During Visit No medications given during this visit.?? Allergies (NKA means No Known Allergies) Novocain lidocaine Common Emergency Awareness Tips IS IT A STROKE? Act FAST and Check for these signs: FACE Does the face look uneven? ARM Does one arm drift down? SPEECH Does their speech sound strange? TIME Call at any sign of stroke ?? Heart Attack Signs Chest discomfort: Most heart attacks involve discomfort in the center of the chest and lasts more than a few minutes, or goes away and comes back. It can feel like uncomfortable pressure, squeezing, fullness or pain. Discomfort in upper body: Symptoms can include pain or discomfort in one or both arms, back, neck, jaw or stomach. Shortness of breath: With or without discomfort. Other signs: Breaking out in a cold sweat, nausea, or lightheaded. Remember, MINUTES DO MATTER. If you experience any of these heart attack warning signs, call to get immediate medical attention! ?? Smoking can increase your chances of developing chronic health problems and can cause harmful effects to other family members in your house. If you smoke, you are strongly encouraged to quit. Please call [employer] [facility] at [phone] or 6-768-444-V2contact ([phone]) or log in to [email or web address] for referrals to smoking cessation programs. ?? The National Suicide Prevention Hotline is available 04/10 if you or someone you know needs to find a reason to keep living. By calling 5-921-844-nlex (3354) you'll be connected to a skilled, trained counselor at a crisis center in your area. [facility] Portal You can view and manage your care through the patient portal or by using a health care matt of your choosing. [employer] is a website that allows you to securely view your medical information including your hospital discharge summary, office visit summaries, medications and follow-up visits. You can also request appointments, renew medications, and request access to your medical information using a health care matt of your choosing, or just ask a question. You can enroll at [email or web address] or register during your next office visit. [facility], in keeping with [facility] guidance, no longer requires face masks for staff, patientsor visitors in most situations. Similiar to time spent indoors at other locations, there is the chance that you were exposed to repiratory viruses during your time with us (such as flu or COVID-19). If you develop symptoms concerning for a viral respiratory infection, please seek testing (and treatment if indicated) from your medical provider or home test kit. ?? Disclaimer: The information provided is of a general nature and is intended to be used in conjunction with the recommendations and advice of your health care practitioner. Every effort has been made to ensure that the information provided is accurate and complete at the time it is provided to you however, as your needs change, or, as new information becomes available, different or additional instructions may be required. ?? If you have questions, please consult with your primary care provider or pharmacist, as appropriate. This information is not intended to serve as substitution for assessment and evaluation by a qualified health care provider. If you do not have a primary care provider, you may find a [facility] provider by calling [facility] at [phone]. Patient Care team information Care Team Personnel Name: Shailesh Machado MD Position: [facility] Physician - Gastroenterology Member Role: Lifetime Consulting Physician Address: Address: [address] [place] [address], [address] [facility] [place] [address]- Name: Jesi Elaine RN Position: S RN Member Role: Primary Care Nurse Name: Mary Valadez RN Position: S RN Member Role: Primary Care Nurse Name: Sho Lyman NP Position: [facility] PCO Associate Professional Member Role: PCP Address: Address: [address] [place] [address]- Name: Juan Manuel Gill RN Position: S RN Member Role: Primary Care Nurse Name: Milind Cooley RN Position: [facility] RN Member Role: Primary Care Nurse Name: Virgen Quezada RN Position: [facility] RN Member Role: Primary Care Nurse Care Team Related Persons Name: NEFTALY TEJADA Address: home [address] [place] [address]
--- OUTSIDE RECORDS SUMMARY | 2023-11-03 01:20 | XMS_ITS | Continuity of Care Document ---
Author Organization [facility] Adult Address [address] [place] [address]- Care Team Providers Care Designer Writer Name Role Phone Sho Lyman NP Primary Care Physician [id number] - 07/24/21 [facility] Adult [address] [place] [address]- Allergies, Adverse Reactions, Alerts Substance Reaction Severity [...] 0 Refills, Maintenance, 04/14/21 10:48:00 EST, Tablet, [facility], Partial fill upon patient request if [...] 0 Refills, Maintenance, 04/14/21 10:50:00 EST, Tablet, [facility], Partial fill upon patient request [...]
--- OUTSIDE RECORDS SUMMARY | 2023-11-03 01:20 | XMS_ITS | Continuity of Care Document ---
Author Organization [facility] Address Unknown Care Team Providers Care Bead Inspector Name Role Phone Sho Lyman NP Primary Care Physician [place] [facility] [place] Date(s): 04/30/21 - 05/30/21 [facility] Attending Physician: Silverio Clinton Admitting Physician: Silverio Clinton Referring Physician: AdmtrSilverio Allergies, Adverse Reactions, Alerts [...] 0 Refills, Maintenance, 04/14/21 10:48:00 EST, Tablet, [facility], Partial fill upon patient request [...] 0 Refills, Maintenance, 04/14/21 10:50:00 EST, Tablet, [facility], Partial fill upon patient request [...]
--- OUTSIDE RECORDS SUMMARY | 2023-11-03 01:20 | XMS_ITS | Continuity of Care Document ---
Author Organization [facility] Adult Address [address] [place] [address]- Care Team Providers Care Medicaid Collection Specialist Name Role Phone Sho Lyman NP Primary Care Physician [phone] [place] [facility] [place]/21/19 - 12/28/[address] [address]- [facility] Encounter Diagnosis Annual physical exam(Discharge Diagnosis) - 12/21/19 Hepatitis C virus infection cured after antiviral drug therapy(Discharge Diagnosis) - 12/21/19 Hepatic steatosis(Discharge Diagnosis) - 12/21/19 Liver cirrhosis(Discharge Diagnosis) - 12/21/19 Tobacco use(Discharge Diagnosis) - 12/21/19 Attending Physician: Sho Lyman NP Allergies, Adverse [...] Active Hepatic steatosis(Confirmed) Active Tobacco use(Confirmed) Active Diagnosis Diagnosis Type Effective Dates Health Status Cl inical Service Informant Annual physical exam Discharge Diagnosis 12/21/19 Hepatitis C virus infection cured after antiviral drug therapy Discharge Diagnosis 12/21/19 Hepatic steatosis Discharge Diagnosis 12/21/19 Liver cirrhosis Discharge Diagnosis 12/21/19 Tobacco use Discharge Diagnosis 12/21/19 Vital Signs Most recent to oldest [Reference Range]: 1 Height 180 cm (12/21/19 10:57 AM) Weight 90.6 kg (12/21/19 10:57 AM) Oxygen Saturation [94-100 %] 93 % *L* (12/21/19 10:57 AM) Pulse Rate [55-90 bpm] 83 bpm (12/21/19 10:57 AM) Body Mass Index [18.5-24.99] 27.96 *H* (12/21/19 10:57 AM) Blood Pressure [90-138/55-84 mm Hg] 116/ 80mm Hg (12/21/19 10:57 AM) Temperature [96.8-100.4 DegF] 98.4 DegF (12/21/19 10:57 AM) Mode of Delivery (Oxygen) Room air (12/21/19 10:57 AM) Blood pressure sites Arm, left (12/21/19 10:57 AM) Temperature Route Oral (12/21/19 10:57 AM) Weight Obtained Via Standing scale (12/21/19 10:57 AM) Social History Social History Type Response Tobacco Use: 4 or less cigar ettes(less than 1/4 pack)/day in last 30 days. Other: 1/3 PPD. Sex
--- OUTSIDE RECORDS SUMMARY | 2023-11-03 01:20 | XMS_ITS | Continuity of Care Document ---
Author Organization [facility] Address Unknown Care Team Providers Care Sack Sorter Name Role Phone Sho Lyman NP Primary Care Physician [phone] Encounter [facility] [place] Date(s): 10/01/20 - 10/31/20 [facility] Allergies, Adverse Reactions, Alerts Substance Reaction Severity [...]
--- OUTSIDE RECORDS SUMMARY | 2023-11-03 01:20 | XMS_ITS | Continuity of Care Document ---
Author Organization [facility] Address [address] [place] [address]- Care Team Providers Care Balance Recesser Name Role Phone Tabatha Pulido Primary Care Physician Encounter [facility] [place] Date(s): 10/29/19 - 11/28/19 [facility] [address] [place] [address]- [facility] Allergies, Adverse Reactions, Alerts Substance Reaction Severity [...]
--- OUTSIDE RECORDS SUMMARY | 2023-11-03 01:20 | XMS_ITS | Continuity of Care Document ---
Author Organization [facility] Address [address] [place] [address]- Care Team Providers Care Mayonnaise Mixer Name Role Phone Sho Lyman NP Primary Care Physician Encounter [facility] [place] Date(s): 02/07/23 - 03/09/23 [facility] [address] [place] [address]- [place] Allergies, Adverse Reactions, Alerts Substance Reaction [...] Team Personnel Name: Shailesh Machado MD Position: [facility] Physician - Gastroenterology Member Role: Lifetime Consulting Physician Address: Address: [address] [place] [address], [address] [facility] [place] [address]- [place] Name: Jesi Elaine RN Position: [facility] RN Member Role: Primary Care Nurse Name: Mary Valadez RN Position: [facility] RN Member Role: Primary Care Nurse Name: Sho Lyman NP Position: [facility] PCO Associate Professional Member Role: PCP Address: Address: [address] [place] [address]- Name: Juan Manuel Gill RN Position: [facility] RN Member Role: Primary Care Nurse Name: Milind Cooley RN Position: [facility] RN Member Role: Primary Care Nurse Name: Virgen Quezada RN Position: [facility] RN Member Role: Primary Care Nurse Care Team Related Persons Name: NEFTALY TEJADA Address: home [address] [place] [address]
--- OUTSIDE RECORDS SUMMARY | 2023-11-03 01:21 | XMS_ITS | Continuity of Care Document ---
Author Organization [facility] Address [address] [place] [address]- Care Team Providers Care Promotional Marketing Analyst Name Role Phone Sho Lyman NP Primary Care Physician [place] [facility] [place] Date(s): 10/17/20 - 11/16/[address] [address] Allergies, Adverse Reactions, Alerts Substance Reaction [...]
--- OUTSIDE RECORDS SUMMARY | 2023-11-03 01:21 | XMS_ITS | Continuity of Care Document ---
Author Organization [facility] Adult Address [address] [place] [address]- Care Team Providers Care Manager Intelligence Name Role Phone Sho Lyman NP Primary Care Physician Encounter [facility] [place] Date(s): 11/08/22 - 12/08/[address] [address]- Allergies, Adverse Reactions, Alerts Substance Reaction Severity [...] Team Personnel Name: Shailesh Machado MD Position: [facility] Physician - Gastroenterology Member Role: Lifetime Consulting Physician Address: Address: [address] [place] [address], [address] [facility] [place] [address]- [place] Name: Jesi Elaine RN Position: S RN Member Role: Primary Care Nurse Name: Mary Valadez RN Position: S RN Member Role: Primary Care Nurse Name: Sho Lyman NP Position: [facility] PCO Associate Professional Member Role: PCP Address: Address: [address] [place] [address]- Name: Juan Manuel Gill RN Position: S RN Member Role: Primary Care Nurse Name: Milind Cooley RN Position: S RN Member Role: Primary Care Nurse Name: Virgen Quezada RN Position: S RN Member Role: Primary Care Nurse Care Team Related Persons Name: NEFTALY TEJADA Address: home [address] [place] [address]
--- OUTSIDE RECORDS SUMMARY | 2023-11-03 01:21 | XMS_ITS | Continuity of Care Document ---
Author Organization [facility] Address Unknown Care Team Providers Care Facing Baster Jumpbasting Name Role Phone Sho Lyman NP Primary Care Physician [place] [facility] [place] Date(s): 04/16/21 - 05/16/21 [facility] Allergies, Adverse Reactions, Alerts Substance [...] 0 Refills, Maintenance, 04/14/21 10:48:00 EST, Tablet, [facility], Partial fill upon patient request [...] 0 Refills, Maintenance, 04/14/21 10:50:00 EST, Tablet, [facility], Partial fill upon patient request [...]
--- OUTSIDE RECORDS SUMMARY | 2023-11-03 01:21 | XMS_ITS | Continuity of Care Document ---
Author Organization [facility] Address Unknown Care Team Providers Care Entry Level Receptionist Name Role Phone Sho Lyman NP Primary Care Physician Encounter [facility] [place] Date(s): 10/15/20 - 11/14/20 [facility] Attending Physician: Silverio Clinton Admitting Physician: Silverio Clinton Referring Physician: Silverio Clinton Allergies, Adverse Reactions, Alerts Substance Reaction Severity [...]
--- OUTSIDE RECORDS SUMMARY | 2023-11-03 01:21 | XMS_ITS | Continuity of Care Document ---
Author Organization [facility] Address [address] [place] [address]- Care Team Providers Care Composition Teacher Name Role Phone Sho Lyman NP Primary Care Physician [place] [facility] [place] 03/09/21 - 04/08/21 [facility] [address] [place] [address]- [place] Allergies, Adverse Reactions, Alerts Substance Reaction [...]
--- OUTSIDE RECORDS SUMMARY | 2023-11-03 01:21 | XMS_ITS | Continuity of Care Document ---
Author Organization [facility] Address [address] [place] [address]- Care Team Providers Care Perinatal Instructor Name Role Phone Sho Lyman NP Primary Care Physician Encounter [facility] [place] Date(s): 04/12/21 - 04/14/[address] [address] Discharge Disposition: A-D/C Home Attending Physician: Chivo Grissom MD Admitting Physician: Chivo Grissom MD Referring Physician: Not on Staff, Referring MD Allergies, Adverse Reactions, Alerts Substance Reaction [...] 0 Refills, Maintenance, 04/14/21 10:48:00 EST, Tablet, [facility], Partial fill upon patient [...] 0 Refills, Maintenance, 04/14/21 10:50:00 EST, Tablet, [facility], Partial fill upon patient request if... Start Date: 04/14/21 Stop Date: 04/17/21 Status: Ordered Multivitamin Tablet By Mouth, Daily, 0 Refills, Maintenance, 10/14/17 8:35:06 EDT Start Date: 10/14/17 Status: Ordered Toradol Inj 15 mg, Injection, IV Push Slowly, 04/14/21 11:00:00 EST, Stop date 04/14/21 11:00:00 EST Start Date: 04/14/21 Stop Date: 04/14/21 Status: Completed Problem List Condition Effective Dates Status Health Status Inform ant Liver cirrhosis(Confirmed) Active Gall stones(Confirmed) Active History of TB (tuberculosis)(Confirmed) Active Hepatitis C virus infection cured after antiviral drug therapy(Confirmed) Active Hepatic steatosis(Confirmed) Active Tobacco use(Confirmed) Active Results Orders for Microbiology Reports Name Date Blood Culture 04/12/21 Blood Culture #2 04/12/21 Microbiology Reports TEST:Blood Culture, Second Order STATUS:Unauthenticated BODY SITE: SOURCE:Blood COLLECTED DATE/TIME:04/12/21 2:55 PM Blood Culture, Second Order SPECIMEN DESCRIPTION : BLOOD NO SITE SPECIAL REQUESTS : NONE CULTURE : NO GROWTH AFTER 48 HOURS REPORT STATUS : PRELIMINARY REPORT TEST:Blood Culture STATUS:Unauthenticated BODY SITE: SOURCE:Blood COLLECTED DATE/TIME:04/12/21 2:45 PM Blood Culture SPECIMEN DESCRIPTION : BLOOD NO SITE SPECIAL REQUESTS : NONE CULTURE : NO GROWTH AFTER 48 HOURS REPORT STATUS : PRELIMINARY REPORT Radiology Reports * Exam Date Time Procedure Performing Provider Status 04/12/21 12:09 PM Chest 2 Views Frontal and Lat Latha Moreno; Auth (Verified) Notes: (Chest 2 Views Frontal and Lat) Reason For Exam: Abdominal Pain RESULT: Chest 2 Views Frontal and Lat Chest 2 Views Frontal and Lat Hx of Present Illness: pt states lower abd pain since yesterday am, with nausea, some diarrhea. temperature goes up and down . denies vomiting. dizziness due to pain ; Reason: Abdominal Pain; Clinical Question(s): Other:; Abd Free Air COMPARISON: 11/27/2020 FINDINGS: LINES AND TUBES: None. LUNGS AND PLEURA: Linear atelectasis in the left midlung. Trace pleural effusions. No pneumothorax. HEART, MEDIASTINUM AND SCOTTY: Heart is normal in size. Normal upper mediastinal and hilar contour. BONES AND SOFT TISSUES: No acute abnormality. IMPRESSION: No acute abnormality. No free air under the diaphragm. WSN: [id number] Ordering Physician: Alessio Bull Dictated By: Marivel Rodriguez MD Dictated Date/Time: 04/12/21 12:15 p Reviewed By: Marivel Rodriguez MD Signed By: Marievl Rodriguez MD Signed Date/Time: 04/12/21 12:15 pm Transcribed By: ALEXUS Transcribed Date/Time: 04/12/21 12:14 pm Vital Signs Most recent to oldest [Reference Range]: 1 2 3 Height 180 cm (04/14/21 11:08 AM) 180 cm (04/14/21 7:40 AM) 180 cm (04/14/21 3:24 AM) Weight 86.9 kg (04/12/21 11:06 PM) 92 kg (04/12/21 6:26 PM) Oxygen Saturation [94-100 %] 96 % (04/14/21 11:08 AM) 95 % (04/14/21 7:40 AM) 98 % (04/14/21 3:24 AM) Pulse Rate [55-90 bpm] 71 bpm (04/14/21 11:08 AM) 67 bpm (04/14/21 7:40 AM) 68 bpm (04/14/21 3:24 AM) Body Mass Index [18.5-24.99] 26.82 *H* (04/12/21 11:06 PM) Blood Pressure [90-138/55-84 mm Hg] 128/71mm Hg (04/14/21 11:08 AM) 118/62mm Hg (04/14/21 7:40 AM) 115/64mm Hg (04/14/21 3:24 AM) Respiratory Rate [16-30 br/min] 18 br/min (04/14/21 11:53 AM) 18 br/min (04/14/21 11:08 AM) 18 br/min (04/14/21 7:40 AM) Temperature [96.8-100.4 DegF] 98.3 DegF (04/14/21 11:08 AM) 98.5 DegF (04/14/21 7:40 AM) 98.9 DegF (04/14/21 3:24 AM) Liters per Minute 2 L/min (04/13/21 3:00 AM) 2 L/min (04/12/21 11:06 PM) 2 L/min (04/12/21 10:54 PM) Mode of Delivery (Oxygen) Room air (04/14/21 11:08 AM) Room air (04/14/21 7:40 AM) Room air (04/14/21 3:24 AM) Blood pressure sites Arm, left (04/14/21 11:08 AM) Arm, left (04/14/21 7:40 AM) Arm, left (04/14/21 3:24 AM) Temperature Route Oral (04/14/21 11:08 AM) Oral (04/14/21 7:40 AM) Oral (04/14/21 3:24 AM) Dry Weight 86.9 kg (04/12/21 11:06 PM) 92 kg (04/12/21 6:26 PM) Weight Obtained Via Standing scale (04/12/21 6:26 PM) Dry Weight Obtained Via Standing scale (04/12/21 6:26 PM) Social History Social History Type Response Smoking Status Former smoker, quit more than 30 days ago; Other: Pt quit smoking 09/2020; entered on: 10/15/20 Sex
--- OUTSIDE RECORDS SUMMARY | 2023-11-03 01:21 | XMS_ITS | Continuity of Care Document ---
Author Organization [facility] Adult Address [address] [place] [address]- Care Team Providers Care Art Glass Designer Name Role Phone Sho Lyman NP Primary Care Physician [phone] [id number] Date(s): 06/24/21 - 07/24/21 [facility] [address] [place] [address]- Allergies, Adverse Reactions, Alerts Substance Reaction Severity [...] 0 Refills, Maintenance, 04/14/21 10:48:00 EST, Tablet, [facility], Partial fill upon patient request if [...] 0 Refills, Maintenance, 04/14/21 10:50:00 EST, Tablet, [facility], Partial fill upon [...]
--- OUTSIDE RECORDS SUMMARY | 2023-11-03 01:21 | XMS_ITS | Continuity of Care Document ---
Author Organization [facility] Address [address] [place] [address]- Care Team Providers Care Veterinarian Helper Name Role Phone Sho Lyman NP Primary Care Physician [place] [facility] [place] 12/09[place]20 - 01/08/21 [facility] [address] [place] [address]- Allergies, Adverse Reactions, Alerts Substance Reaction Severity [...]
--- OUTSIDE RECORDS SUMMARY | 2023-11-03 01:21 | XMS_ITS | Continuity of Care Document ---
Author Organization [facility] Address [address] [place] [address]- Care Team Providers Care Gym Supervisor Name Role Phone Sho Lyman NP Primary Care Physician [place] [facility] [place](s): 07/29/23 - 08/28/23 [facility] [address] [place] [address]- [place] Allergies, Adverse Reactions, Alerts Substance Reaction [...] Team Personnel Name: Shailesh Machado MD Position: [facility] Physician - Gastroenterology Member Role: Lifetime Consulting Physician Address: Address: [address] [facility], [address] [facility] [place] [address]- [place] Name: Jesi Elaine RN Position: [facility] RN Member Role: Primary Care Nurse Name: Mary Valadez RN Position: [facility] RN Member Role: Primary Care Nurse Name: Sho Lyman NP Position: [facility] PCO Associate Professional Member Role: PCP Address: Address: [address] [place] [address]- Name: Juan Manuel Gill RN Position: [facility] RN Member Role: Primary Care Nurse Name: Milind Cooley RN Position: [facility] RN Member Role: Primary Care Nurse Name: Virgen Quezada RN Position: [facility] RN Member Role: Primary Care Nurse Care Team Related Persons Name: NEFTALY TEJADA Address: home [address] [place] [address]
--- OUTSIDE RECORDS SUMMARY | 2023-11-03 01:21 | XMS_ITS | Continuity of Care Document ---
Author Organization [facility] Address [address] [place] [address]- Care Team Providers Care Railroad Track Inspector Name Role Phone Sho Lyman NP Primary Care Physician Encounter [facility] [place] Date(s): 02/10/22 - 03/12/22 [facility] [address] [place] [address] Allergies, Adverse Reactions, Alerts Substance Reaction Severity [...] Personnel Name: Shailesh Machado MD Position: Cristopher DELUCA MD Member Role: Lifetime Consulting Physician Address: Address: [address] [place] [address], [facility] [address] [facility] [place] [address]- Name: Jesi Drew RN Position: S RN Member Role: Primary Care Nurse Name: Mary Valadez RN Position: S RN Member Role: Primary Care Nurse Name: Sho Lyman NP Position: [facility] PCO Associate Professional Member Role: PCP Address: Address: [address] [place] [address]- Name: Juan Manuel Gill RN Position: [facility] RN Member Role: Primary Care Nurse Name: Milind Cooley RN Position: [facility] RN Member Role: Primary Care Nurse Name: Virgen Quezada RN Position: [facility] RN Member Role: Primary Care Nurse Care Team Related Persons Name: NEFTALY TEJADA Address: home [address] [place] [address]
--- OUTSIDE RECORDS SUMMARY | 2023-11-03 01:21 | XMS_ITS | Continuity of Care Document ---
Author Organization [facility] Address [address] [place] [address]- Care Team Providers Care Manager Ambulatory Name Role Phone Sho Lyman NP Primary Care Physician [place] [facility] [place]07[place]21 - 10/07/21 [facility] [address] [place] [address]- [place] Allergies, Adverse Reactions, Alerts Substance Reaction [...]
--- OUTSIDE RECORDS SUMMARY | 2023-11-03 01:21 | XMS_ITS | Continuity of Care Document ---
Author Organization [facility] Adult Address [address] [place] [address]- Care Team Providers Care Claim Service Representative Name Role Phone Sho Lyman NP Primary Care Physician Encounter [facility] Date(s): 11/24/20 - 12/24/20 [facility] [address] [place] [id number] Allergies, Adverse Reactions, Alerts Substance Reaction [...]
--- OUTSIDE RECORDS SUMMARY | 2023-11-03 01:21 | XMS_ITS | Continuity of Care Document ---
Author Organization [facility] Address [address] [place] [address]- Care Team Providers Care Philatelic Consultant Name Role Phone Sho Lyman NP Primary Care Physician En[place] [facility] [place] Date(s): 09/10/20 - 09/13/[address] [address]- Encounter Diagnosis Abdominal visceral abscess(Final) - 09/10/20 Discharge Disposition: A-D/C Home Attending Physician: Zafar Galvan MD Admitting Physician: Zafar Galvan MD Referring Physician: Not on Staff, Referring MD Allergies, Adverse Reactions, Alerts Substance Reaction Severity Status lidocaine Active Novocain Active Medications acetaminophen 325 mg oral tablet 650 mg, 2, tablet, By Mouth, Every 4 hours, PRN, for 7 days, # 84 tablet, Refills 0, Tot. Refills 0, Acute 09/20/20 11:23:00 EDT, as needed for pain, 09/13/20 11:23:00 EDT, Route to Pharmacy Electronically, [id number], Partial fill upon patien... Start Date: 09/13/20 Stop Date: 09/20/20 Status: Ordered amoxicillin-clavulanate 875 mg-125 mg oral tablet = 875 mg, By Mouth, 2 times a day, for 11 days, # 22 tablet, 0 Refills, Acute 09/24/20 11:22:00 EDT, 09/13/20 11:22:00 EDT, Tablet, [id number], Partial fill upon patient request if the prescription is for a schedule II opioid drug., 180, cm, 1... Start Date: 09/13/20 Stop Date: 09/24/20 Status: Ordered aspirin 81 mg oral tablet 1 tablet [...] for Microbiology Reports Name Date Blood Culture 09/10/20 Blood Culture #2 09/10/20 Microbiology Reports TEST:Blood Culture, Second Order STATUS:Unauthenticated BODY SITE: SOURCE:Blood COLLECTED DATE/TIME:09/10/20 9:24 AM Blood Culture, Second Order SPECIMEN DESCRIPTION : BLOOD L HAND SPECIAL REQUESTS : NONE CULTURE : NO GROWTH 3 DAYS REPORT STATUS : PRELIMINARY REPORT TEST:Blood Culture STATUS:Unauthenticated BODY SITE: SOURCE:Blood COLLECTED DATE/TIME:09/10/20 9:22 AM Blood Culture SPECIMEN DESCRIPTION : BLOOD LAC SPECIAL REQUESTS : NONE CULTURE : NO GROWTH 3 DAYS REPORT STATUS : PRELIMINARY REPORT Radiology Reports * Exam Date Time Procedure Performing Provider Status 09/10/20 9:33 AM Chest Portable Marii Crowder; Auth (Verified) Notes: (Chest Portable) Reason For Exam: Fever RESULT: Chest Portable Chest Portable Hx of Present Illness: pt states sharp lower abd pain x 3 days. COMPARISON: None. FINDINGS: LINES AND TUBES: None. LUNGS AND PLEURA: Bandlike atelectasis lower lung goldman bilaterally. No pleural effusion. No pneumothorax. HEART, MEDIASTINUM AND SCOTTY: Heart is normal in size. Normal upper mediastinal and hilar contour. BONES AND SOFT TISSUES: No acute abnormality. IMPRESSION: Bilateral bandlike atelectasis. No acute abnormality. WSN: [id number] Ordering Physician: Javier Parisi Dictated By: Elier Porras MD Dictated Date/Time: 09/10/20 9:36 am Reviewed By: Elier Porras MD Signed By: Elier Porras MD Signed Date/Time: 09/10/20 9:36 am Transcribed By: ALEXUS Transcribed Date/Time: 09/10/20 9:34 am Vital Signs Most recent to oldest [Reference Range]: 1 2 3 Weight 94.4 kg (09/11/20 1:06 PM) Oxygen Saturation [94-100 %] 95 % (09/13/20 11:00 AM) 98 % (09/13/20 7:00 AM) 94 % (09/13/20 4:15 AM) Pulse Rate [55-90 bpm] 59 bpm (09/13/20 11:00 AM) 63 bpm (09/13/20 7:00 AM) 62 bpm (09/13/20 4:15 AM) Blood Pressure [90-138/55-84 mm Hg] 131/77mm Hg (09/13/20 11:00 AM) 127/73mm Hg (09/13/20 7:00 AM) 123/74mm Hg (09/13/20 4:15 AM) Respiratory Rate [16-30 br/min] 18 br/min (09/13/20 11:00 AM) 18 br/min (09/13/20 7:00 AM) 18 br/min (09/13/20 4:15 AM) Temperature [96.8-100.4 DegF] 98.5 DegF (09/13/20 11:00 AM) 98.6 DegF (09/13/20 7:00 AM) 98.2 DegF (09/13/20 4:15 AM) Liters per Minute 0 L/min (09/10/20 3:30 PM) 0 L/min (09/10/20 10:20 AM) Mode of Delivery (Oxygen) Room air (09/13/20 11:00 AM) Room air (09/13/20 7:00 AM) Room air (09/13/20 4:15 AM) Blood pressure sites Arm, right (09/13/20 11:00 AM) Arm, left (09/13/20 7:00 AM) Arm, left (09/13/20 4:15 AM) Temperature Route Oral (09/13/20 11:00 AM) Oral (09/13/20 7:00 AM) Oral (09/13/20 4:15 AM) Social History Social History Type Response Tobacco Use: 4 or less cigar ettes(less than 1/4 pack)/day in last 30 days. Other: 1/3 PPD. Sex
--- OUTSIDE RECORDS SUMMARY | 2023-11-03 01:21 | XMS_ITS | Continuity of Care Document ---
Author Organization [facility] Adult Address [address] [place] [address]- Care Team Providers Care Drug Enforcement Administration Agent Name Role Phone Sho Lyman NP Primary Care Physician [phone] Encounter [facility] [place] Date(s): 11/01/22 - 11/08/[address] [address]- Encounter Diagnosis Adult general medical exam(Discharge Diagnosis) - 11/01/22 Liver cirrhosis(Discharge Diagnosis) - 11/01/22 Hepatitis C virus infection cured after antiviral drug therapy(Discharge Diagnosis) - 11/01/22 History of TB (tuberculosis)(Discharge Diagnosis) - 11/01/22 Attending Physician: Ranjana Crespo Allergies, Adverse Reactions, Alerts Substance Reaction Severity [...] Dates Health Status Cl inical Service Informant Adult general medical exam Discharge Diagnosis 11/01/22 Liver cirrhosis Discharge Diagnosis 11/01/22 Hepatitis C virus infection cured after antiviral drug therapy Discharge Diagnosis 11/01/22 History of TB (tuberculosis) Discharge Diagnosis 11/01/22 Vital Signs Most recent to oldest [Reference Range]: 1 Height 180 cm (11/01/22 9:35 AM) Weight 91.9 kg (11/01/22 9:35 AM) Oxygen Saturation [94-100 %] 96 % (11/01/22 9:35 AM) Pulse Rate [55-90 bpm] 73 bpm (11/01/22 9:35 AM) Body Mass Index [18.5-24.99 kg/m2] 28.36 kg/m2 *H* (11/01/22 9:35 AM) Blood Pressure [90-138/55-84 mm Hg] 114/ 75mm Hg (11/01/22 9:35 AM) Temperature [96.8-100.4 DegF] 97.7 DegF (11/01/22 9:35 AM) Mode of Delivery (Oxygen) Room air (11/01/22 9:35 AM) Blood pressure sites Arm, left (11/01/22 9:35 AM) Temperature Route Temporal (11/01/22 9:35 AM) Weight Obtained Via Standing scale (11/01/22 9:35 AM) Social History Social History Type Response Smoking Status Former smoker, quit more than 30 days ago; Other: Pt quit smoking 09/2020; Tobacco use times per day: smoked for 20-25 year 7 cigarettes per day; entered on: 11/01/22 Sex Note * Juliana Sawyer: PERFORM, SIGN, VERIFY Event Display: Patient Education/Instruction Authored Date: [facility] Clinical Summary Name CHRISTINE TEJADA Age 57 Years 1965 PCP Sho Lyman NP PCP Visit Date 11/01/2022 09:26:00 Additional Instructions: Scheduled Appointments?? Future Appointments ?No Future Appointments Scheduled Follow-Up Instructions ?? With: Address: When: Sho Lyman NP 11/01/2022 12:00 AM Comments: 1 year PE with PCP Diagnosis Encounter for general adult medical examination without abnormal findings; Personal history of tuberculosis; Encounter for screening for malignant neoplasm of colon; Unspecified cirrhosis of liver; Personal history of other infectious and parasitic diseases Medications: Please continue your medications until treatment is completed or stopped by your provider. Discuss any questions related to medications with your provider. Medications to Continue with No Changes These medications were not printed or sent to your pharmacy Multivitamin (Multivitamin Tablet) Oral Daily. Next Dose: [place]-3 Polyunsaturated Fatty Acids (Fish Oil) Oral. Next Dose: Allergy Info:?? Novocain; lidocaine Medications Given This Visit Future Orders ?No future orders Vital Signs Height 180 cm Weight 91.9 kg BMI 28.36 kg/m2 Blood Pressure 114 mm Hg/75 mm Hg Temperature 97.7 DegF Pulse Rate 73 bpm Respiratory Rate 02 Sat Mode of Delivery 96 %/Room air You can now view a summary of your hospital visit from the comfort of your home through a free online portal called Inside Secure. Inside Secure is a website that allows you to securely view your medical information including discharge summary, medications and follow-up visits. ??You can alsosend a secure electronic message to your doctor???s office to request appointments, renew medications or just ask a question. You can enroll at [email or web address] or register during your next office visit. Disclaimer:?? The information provided is of a general nature and is intended to be used in conjunction with the recommendations and advice of your health care practitioner. ??Every effort has been made to ensure that the information provided is accurate and complete at the time it is provided to you however, as your needs change, or, as new ??information becomes available, different or additional instructions may be required. If you have questions, please consult with your primary care provider or pharmacist, as appropriate. ??This information is not intended to serve as substitution for assessment and evaluation by a qualified health care provider. If you do not have a primary care provider, you may find a [facility] provider by calling [facility] at [phone]. For information about the plan of care including goals and instructions for your diagnosis, please see the patient education orders section of this document. Patient Education Materials?? The content of this educational material or handout may have been modified, supplemented, or adapted from its original content and format to support your individualized medical care. * Sahra Caro: PERFORM, SIGN, VERIFY Event Display: Patient Education/Instruction Authored Date: [id number] [facility] *[facility] Clinical Summary Name CHRISTINE TEJADA Age 57 Years 1965 PCP Sho Lyman NP PCP Visit Date 11/01/2022 09:26:00 Additional Instructions: Scheduled Appointments?? Future Appointments ?No Future Appointments Scheduled Follow-Up Instructions ?? With: Address: When: Sho Lyman NP 11/01/2022 12:00 AM Comments: 1 year PE with PCP Diagnosis Encounter for general adult medical examination without abnormal findings; Personal history of tuberculosis; Unspecified cirrhosis of liver; Personal history of other infectious and parasitic diseases Medications: Please continue your medications until treatment is completed or stopped by your provider. Discuss any questions related to medications with your provider. Medications to Continue with No Changes These medications were not printed or sent to your pharmacy Multivitamin (Multivitamin Tablet) Oral Daily. Next Dose: [place]-3 Polyunsaturated Fatty Acids (Fish Oil) Oral. Next Dose: Allergy Info:?? Novocain; lidocaine Medications Given This Visit Future Orders ?Vitamin D 25 Hydroxy Level? Order Date:11/01/22?- Complete within?3 days ?Lipid Panel? Order Date:11/01/22?- Complete by?11/04/22 ?CBC w/ Differential? Order Date:11/01/22?- Complete by?11/04/22 ?PSA? Order Date:11/01/22?- Complete on or after?11/01/22 ?Comprehensive Metabolic Panel? Order Date:11/01/22?- Complete on or after?11/01/22 Vital Signs Height 180 cm Weight 91.9 kg BMI 28.36 kg/m2 Blood Pressure 114 mm Hg/75 mm Hg Temperature 97.7 DegF Pulse Rate 73 bpm Respiratory Rate 02 Sat Mode of Delivery 96 %/Room air You can now view a summary of your hospital visit from the comfort of your home through a free online portal called Inside Secure. Inside Secure is a website that allows you to securely view your medical information including discharge summary, medications and follow-up visits. ??You can alsosend a secure electronic message to your doctor???s office to request appointments, renew medications or just ask a question. You can enroll at [email or web address] or register during your next office visit. Disclaimer:?? The information provided is of a general nature and is intended to be used in conjunction with the recommendations and advice of your health care practitioner. ??Every effort has been made to ensure that the information provided is accurate and complete at the time it is provided to you however, as your needs change, or, as new ??information becomes available, different or additional instructions may be required. If you have questions, please consult with your primary care provider or pharmacist, as appropriate. ??This information is not intended to serve as substitution for assessment and evaluation by a qualified health care provider. If you do not have a primary care provider, you may find a [facility] provider by calling [facility] at [phone]. For information about the plan of care including goals and instructions for your diagnosis, please see the patient education orders section of this document. Patient Education Materials?? The content of this educational material or handout may have been modified, supplemented, or adapted from its original content and format to support your individualized medical care. Patient Care team information Care Team Personnel Name: Shailesh Machado MD Position: [facility] Physician - Gastroenterology Member Role: Lifetime Consulting Physician Address: Address: [address] [place] [address], [address] [place] [address]- Name: Jesi Elaine RN Position: S RN Member Role: Primary Care Nurse Name: Mary Valadez RN Position: [facility] RN Member Role: Primary Care Nurse Name: Sho Lyman NP Position: [facility] PCO Associate Professional Member Role: PCP Address: Address: [address] [place] [address]- Name: Juan Manuel Gill RN Position: S RN Member Role: Primary Care Nurse Name: Milind Cooley RN Position: S RN Member Role: Primary Care Nurse Name: Virgen Quezada RN Position: [facility] RN Member Role: Primary Care Nurse Care Team Related Persons Name: NEFTALY TEJADA Address: home [address] [address]
--- OUTSIDE RECORDS SUMMARY | 2023-11-03 01:21 | XMS_ITS | Continuity of Care Document ---
Author Organization [facility] Address [address] [place] [address]- Care Team Providers Care Supply Chain Consultant Name Role Phone Sho Lyman NP Primary Care Physician [phone] Encounter [facility] [place] Date(s): 10/29/20 - 11/28/20 [facility] [address] [place] [address]- [place] Allergies, Adverse Reactions, Alerts Substance Reaction [...]
--- OUTSIDE RECORDS SUMMARY | 2023-11-03 01:21 | XMS_ITS | Continuity of Care Document ---
Author Organization [facility] Address Unknown Care Team Providers Care Asp Developer Name Role Phone Sho Lyman NP Primary Care Physician En[place] [facility] Date(s): 04/14/21 - 05/14/21 [facility] Allergies, Adverse Reactions, Alerts [...] 0 Refills, Maintenance, 04/14/21 10:48:00 EST, Tablet, [facility], Partial fill upon [...] 0 Refills, Maintenance, 04/14/21 10:50:00 EST, Tablet, [facility], Partial fill upon [...]
--- OUTSIDE RECORDS SUMMARY | 2023-11-03 01:21 | XMS_ITS | Continuity of Care Document ---
Author Organization [facility] Adult Address [address] [place] [address]- Care Team Providers Care Motion Picture Equipment Supervisor Name Role Phone Sho Lyman NP Primary Care Physician [phone] [place] [facility] [place] Date(s): 09/28/21 - 10/05/[address] [address]- Encounter Diagnosis Physical exam(Discharge Diagnosis) - 09/28/21 Gall stones(Discharge Diagnosis) - 09/28/21 Hepatic steatosis(Discharge Diagnosis) - 09/28/21 Hepatitis C virus infection cured after antiviral drug therapy(Discharge Diagnosis) - 09/28/21 History of TB (tuberculosis)(Discharge Diagnosis) - 09/28/21 Liver cirrhosis(Discharge Diagnosis) - 09/28/21 Attending Physician: Regla Thornton NP Allergies, Adverse Reactions, Alerts Substance Reaction [...] Dates Health Status Cl inical Service Informant Physical exam Discharge Diagnosis 09/28/21 Gall stones Discharge Diagnosis 09/28/21 Hepatic steatosis Discharge Diagnosis 09/28/21 Hepatitis C virus infection cured after antiviral drug therapy Discharge Diagnosis 09/28/21 History of TB (tuberculosis) Discharge Diagnosis 09/28/21 Liver cirrhosis Discharge Diagnosis 09/28/21 Procedures Procedure Date Related Diagnosis Body Site Status Appendectomy Completed Lipoma Completed Vital Signs Most recent to oldest [Reference Range]: 1 2 Height 180 cm (09/28/21 11:13 AM) 180 cm (09/28/21 10:46 AM) Weight 93 kg (09/28/21 10:46 AM) Oxygen Saturation [94-100 %] 97 % (09/28/21 10:46 AM) Pulse Rate [55-90 bpm] 67 bpm (09/28/21 10:46 AM) Body Mass Index [18.5-24.99] 28.7 *H* (09/28/21 10:46 AM) Blood Pressure [90-138/55-84 mm Hg] 122/ 78mm Hg (09/28/21 11:13 AM) 115/67mm Hg (09/28/21 10:46 AM) Mode of Delivery (Oxygen) Room air (09/28/21 10:46 AM) Blood pressure sites Arm, left (09/28/21 11:13 AM) Arm, left (09/28/21 10:46 AM) Weight Obtained Via Standing scale (09/28/21 10:46 AM) Social History Social History Type Response Smoking Status Former smoker, quit more than 30 days ago; Other: Pt quit smoking 09/2020; entered on: 10/15/20 Sex
--- OUTSIDE RECORDS SUMMARY | 2023-11-03 01:21 | XMS_ITS | Continuity of Care Document ---
Author Organization [facility] Adult Address [address] [place] [address]- Care Team Providers Care Director Game Name Role Phone Sho Lyman NP Primary Care Physician Encounter [id number] Date(s): 10/18/23 - 10/18/[address] [address]- Allergies, Adverse Reactions, Alerts Substance Reaction Severity [...] Personnel Name: Shailesh Machado MD Position: [facility] Physician - Gastroenterology Member Role: Lifetime Consulting Physician Address: Address: [address] [place] [address], [address] [facility] [place] [address]- Name: Jesi Elaine RN Position: [facility] RN Member Role: Primary Care Nurse Name: Mary Valadez RN Position: [facility] RN Member Role: Primary Care Nurse Name: Sho Lyman NP Position: [facility] PCO Associate Professional Member Role: PCP Address: Address: [address] [place] [address]- Name: Juan Manuel Gill RN Position: [facility] RN Member Role: Primary Care Nurse Name: Milind Cooley RN Position: [facility] RN Member Role: Primary Care Nurse Name: Virgen Quezada RN Position: [facility] RN Member Role: Primary Care Nurse Care Team Related Persons Name: NEFTALY TEJADA Address: home [address] [place] [address]
--- OUTSIDE RECORDS SUMMARY | 2023-11-03 01:21 | XMS_ITS | Continuity of Care Document ---
Author Organization [facility] Adult Address [address] [place] [address]- Care Team Providers Care Basin Tender Name Role Phone Sho Lyman NP Primary Care Physician [place] [facility] [place] 12/05/19 - 01/04/[address] [facility] Adult [address] [place] [address]- [facility] Allergies, Adverse Reactions, Alerts Substance Reaction Severity [...]
--- OUTSIDE RECORDS SUMMARY | 2023-11-03 01:21 | XMS_ITS | Continuity of Care Document ---
Author Organization [facility] Adult Address [address] [place] [address]- Care Team Providers Care Security Control Center Operator Name Role Phone Sho Lyman NP Primary Care Physician Encounter [facility] Date(s): 11/26/20 - 12/26/20 [facility] Adult [address] [place] [address] Allergies, Adverse Reactions, Alerts Substance Reaction [...]
--- OUTSIDE RECORDS SUMMARY | 2023-11-03 01:21 | XMS_ITS | Continuity of Care Document ---
Author Organization [facility] Address Unknown Care Team Providers Care Assistant General Manager Name Role Phone Sho Lyman NP Primary Care Physician [phone] Encounter [facility] Date(s): 05/07/21 - 06/06/21 [facility] Allergies, Adverse Reactions, [...]
--- OUTSIDE RECORDS SUMMARY | 2023-11-03 01:21 | XMS_ITS | Continuity of Care Document ---
Author Organization [facility] Address [address] [place] [address] ve [address] [place] [address]- Care Team Providers Care Dietetic Technician Name Role Phone Sho Lyman NP Primary Care Physician [place] [facility] 09/22/20 - 10/22/20 [facility] [address] [place] [address]- Allergies, Adverse Reactions, Alerts Substance Reaction Severity [...]
--- OUTSIDE RECORDS SUMMARY | 2023-11-03 01:21 | XMS_ITS | Continuity of Care Document ---
Author Organization [facility] Address [address] [place] [address]- Care Team Providers Care Website/Blog Editor Name Role Phone Tabatha Pulido Primary Care Physician Encounter [facility] Date(s): 11/02/19 - 12/02/19 [facility] [address] [place] [address]- [facility] Allergies, Adverse Reactions, Alerts Substance Reaction [...]
--- OUTSIDE RECORDS SUMMARY | 2023-11-03 01:21 | XMS_ITS | Continuity of Care Document ---
Author Organization [facility] Address [address] [place] [address]- Care Team Providers Care Postmaster Name Role Phone Sho Lyman NP Primary Care Physician [place] [facility]/22/22 - 02/21/22 [facility] [address] [place] [address]- Allergies, Adverse Reactions, Alerts Substance Reaction Severity [...] Member Role: Lifetime Consulting Physician Address: Address: [address] [place] [address], [facility] [place] [address]- Name: Jesi Drew RN Position: S RN Member Role: Primary Care Nurse Name: Mary Valadez RN Position: S RN Member Role: Primary Care Nurse Name: Sho Lyman NP Position: [facility] PCO Associate Professional Member Role: PCP Address: Address: [address] [place] [address]- Name: Juan Manuel Gill RN Position: [facility] RN Member Role: Primary Care Nurse Name: Milind Cooley RN Position: [facility] RN Member Role: Primary Care Nurse Name: Virgen Quezada RN Position: [facility] RN Member Role: Primary Care Nurse Care Team Related Persons Name: NEFTALY TEJADA Address: home [address] [place] [address]
--- OUTSIDE RECORDS SUMMARY | 2023-11-03 01:21 | XMS_ITS | Continuity of Care Document ---
Author Organization [facility] Address Unknown Care Team Providers Care Outbound Telemarketer Name Role Phone Sho Lyman NP Primary Care Physician [phone] [place] [facility] [place] Date(s): 10/16/20 - 11/15/20 [facility] Allergies, Adverse Reactions, Alerts Substance [...]
--- OUTSIDE RECORDS SUMMARY | 2023-11-03 01:21 | XMS_ITS | Continuity of Care Document ---
Author Organization [facility] Address [address] [place] [address]- Care Team Providers Care Contracting Support Specialist Name Role Phone Sho Lyman NP Primary Care Physician [place] [facility] [place](s): 07/26/22 - 08/25/22 [facility] [address] [place] [address]- Allergies, Adverse Reactions, Alerts Substance Reaction Severity [...] Team Personnel Name: Shailesh Machado MD Position: [facility] Physician - Gastroenterology Member Role: Lifetime Consulting Physician Address: Address: [address] [place] [address], [facility] [address] [facility] [place] [place] [address]- Name: Jesi Elaine RN Position: S RN Member Role: Primary Care Nurse Name: Mary Valadez RN Position: S RN Member Role: Primary Care Nurse Name: Sho Lyman NP Position: [facility] PCO Associate Professional Member Role: PCP Address: Address: [address] [place] [address]- Name: Juan Manuel Gill RN Position: [facility] RN Member Role: Primary Care Nurse Name: Milind Cooley RN Position: [facility] RN Member Role: Primary Care Nurse Name: Virgen Quezada RN Position: [facility] RN Member Role: Primary Care Nurse Care Team Related Persons Name: NEFTALY TEJADA Address: home [address] [place] [address]
--- OUTSIDE RECORDS SUMMARY | 2023-11-03 01:21 | XMS_ITS | Continuity of Care Document ---
Author Organization [facility] Address [address] [place] [address]- Care Team Providers Care Pilot Name Role Phone hSo Lyman NP Primary Care Physician [place] [facility] [place](s): 07/14/23 - 08/13/23 [facility] [address] [place] [address] [place] Allergies, Adverse Reactions, Alerts Substance Reaction [...] Team Personnel Name: Shailesh Machado MD Position: [facility] Physician - Gastroenterology Member Role: Lifetime Consulting Physician Address: Address: [address] [facility], [address] [facility] [place] [address]- [place] Name: Jesi Elaine RN Position: [facility] RN Member Role: Primary Care Nurse Name: Mary Valadez RN Position: [facility] RN Member Role: Primary Care Nurse Name: Sho Lyman NP Position: [facility] PCO Associate Professional Member Role: PCP Address: Address: [address] [place] [address]- Name: Juan Manuel Gill RN Position: [facility] RN Member Role: Primary Care Nurse Name: Milind Cooley RN Position: [facility] RN Member Role: Primary Care Nurse Name: Virgen Quezada RN Position: [facility] RN Member Role: Primary Care Nurse Care Team Related Persons Name: NEFTALY TEJADA Address: home [address] [place] [address]
--- OUTSIDE RECORDS SUMMARY | 2023-11-03 01:21 | XMS_ITS | Continuity of Care Document ---
Author Organization [facility] Address [address] [place] [address]- Care Team Providers Care Washing Machine Striper Name Role Phone Sho Lyman NP Primary Care Physician [phone] [place] [facility] [place] 07[place]21[place]21 - 08/20/21 [facility] [address] [place] [address]- [place] Allergies, Adverse Reactions, Alerts Substance Reaction [...] 0 Refills, Maintenance, 04/14/21 10:48:00 EST, Tablet, [facility], Partial fill upon patient [...] 0 Refills, Maintenance, 04/14/21 10:50:00 EST, Tablet, [facility], Partial fill upon patient [...]
--- OUTSIDE RECORDS SUMMARY | 2023-11-03 01:21 | XMS_ITS | Continuity of Care Document ---
Author Organization [facility] Address [address] [place] [address]- Care Team Providers Care Mannequin Coloring Artist Name Role Phone Sho Lyman NP Primary Care Physician [phone] [place] [facility] [place] - 04/01/22 [facility] [address] [place] [address]- Allergies, Adverse Reactions, Alerts Substance Reaction Severity [...] Member Role: Lifetime Consulting Physician Address: Address: [address] [place] [address], [address] [facility] [place] [address]- Name: Jesi Elaine RN Position: S RN Member Role: Primary Care Nurse Name: Mary Valadez RN Position: S RN Member Role: Primary Care Nurse Name: Sho Lyman NP Position: [facility] PCO Associate Professional Member Role: PCP Address: Address: [address] [place] [phone]- Name: Juan Manuel Gill RN Position: [facility] RN Member Role: Primary Care Nurse Name: Milind Cooley RN Position: [facility] RN Member Role: Primary Care Nurse Name: Virgen Quezada RN Position: [facility] RN Member Role: Primary Care Nurse Care Team Related Persons Name: NEFTALY TEJADA Address: home [address] [place] [id number]
--- OUTSIDE RECORDS SUMMARY | 2023-11-03 01:21 | XMS_ITS | Continuity of Care Document ---
Author Organization [facility] Adult Address [address] [place] [address]- Care Team Providers Care Automotive Painter Helper Name Role Phone Sho Lyman NP Primary Care Physician [place] [facility] [place]/01/22 [facility] [address] [place] [id number]- Allergies, Adverse Reactions, Alerts Substance Reaction Severity [...] Team Personnel Name: Shailesh Machado MD Position: S Physician - Gastroenterology Member Role: Lifetime Consulting Physician Address: Address: [address] [place] [address], [address] [facility] [place] [address]- [place] Name: Jesi Elaine RN Position: [facility] RN Member Role: Primary Care Nurse Name: Mary Valadez RN Position: S RN Member Role: Primary Care Nurse Name: Sho Lyman NP Position: [facility] PCO Associate Professional Member Role: PCP Address: Address: [address] [place] [phone]- Name: Juan Manuel Gill RN Position: [facility] RN Member Role: Primary Care Nurse Name: Milind Cooley RN Position: [facility] RN Member Role: Primary Care Nurse Name: Virgen Quezada RN Position: [facility] RN Member Role: Primary Care Nurse Care Team Related Persons Name: NEFTALY TEJADA Address: home [address] [place] [id number]
--- OUTSIDE RECORDS SUMMARY | 2023-11-03 01:21 | XMS_ITS | Continuity of Care Document ---
Author Organization [facility] Address [address] [place] [address]- Care Team Providers Care External Relations Director Name Role Phone Josefina MONTERO, Herbie Primary Care Physician [place] [facility] [place] 04/25/20 - 05/25/20 [facility] [address] [place] [address]- Allergies, Adverse Reactions, Alerts Substance Reaction Severity [...]
--- OUTSIDE RECORDS SUMMARY | 2023-11-03 01:21 | XMS_ITS | Continuity of Care Document ---
Author Organization [facility] Address [address] [place] [address]- Care Team Providers Care Appliance Assembler Name Role Phone Sho Lyman NP Primary Care Physician [place] [facility] [place] - 02/22/20 [facility] [address] [place] [phone]- Attending Physician: Silverio Clinton Admitting Physician: Silverio [...]
--- OUTSIDE RECORDS SUMMARY | 2023-11-03 01:21 | XMS_ITS | Continuity of Care Document ---
Author Organization [facility] Address [address] [place] [address]- Care Team Providers Care Laboratory Equipment Cleaner Name Role Phone Tabatha Pulido Primary Care Physician [phone] Encounter [facility] [place] Date(s): 11/03/19 - 12/03/19 [facility] [address] [place] [phone]- [facility] Allergies, Adverse Reactions, Alerts Substance Reaction Severity [...]
--- OUTSIDE RECORDS SUMMARY | 2023-11-03 01:21 | XMS_ITS | Continuity of Care Document ---
Author Organization [facility] Address Unknown Care Team Providers Care Director Of Application Development Name Role Phone Sho Lyman NP Primary Care Physician Encounter [facility] [place](s): 04/30/21 - 05/07/21 [facility] Encounter Diagnosis Appendicitis(Discharge Diagnosis) - 04/30/21 Postop check(Discharge Diagnosis) - 04/30/21 Attending Physician: Harris Gonzalez Referring Physician: Sho Lyman NP Allergies, Adverse Reactions, [...] 0 Refills, Maintenance, 04/14/21 10:48:00 EST, Tablet, [facility], Partial fill upon patient [...] 0 Refills, Maintenance, 04/14/21 10:50:00 EST, Tablet, [facility], Partial fill upon patient [...] Dates Health Status Cl inical Service Informant Appendicitis Discharge Diagnosis 04/30/21 Postop check Discharge Diagnosis 04/30/21 Vital Signs Most recent to oldest [Reference Range]: 1 Height 180 cm (04/30/21 3:02 PM) Weight 91.8 kg (04/30/21 3:02 PM) Pulse Rate [55-90 bpm] 81 bpm (04/30/21 3:02 PM) Body Mass Index [18.5-24.99] 28.33 *H* (04/30/21 3:02 PM) Temperature [96.8-100.4 DegF] 97.5 DegF (04/30/21 3:02 PM) Temperature Route Temporal (04/30/21 3:02 PM) Weight Obtained Via Standing scale (04/30/21 3:02 PM) Social History Social History Type Response Smoking Status Former smoker, quit more than 30 days ago; Other: Pt quit smoking 09/2020; entered on: 10/15/20 Sex
--- OUTSIDE RECORDS SUMMARY | 2023-11-03 01:21 | XMS_ITS | Continuity of Care Document ---
Author Organization [facility] Adult Address [address] [place] [address]- Care Team Providers Care Lock Maintenance Supervisor Name Role Phone Sho Lyman NP Primary Care Physician Encounter [facility] [id number] Date(s): 10/15/20 - 10/22/[address] [address]- Encounter Diagnosis Adult general medical exam(Discharge Diagnosis) - 10/15/20 Tobacco use(Discharge Diagnosis) - 10/15/20 Varicose vein of leg(Discharge Diagnosis) - 10/15/20 Attending Physician: Sho Lyman NP Allergies, Adverse [...] Informant Adult general medical exam Discharge Diagnosis 10/15/20 Tobacco use Discharge Diagnosis 10/15/20 Varicose vein of leg Discharge Diagnosis 10/15/20 Vital Signs Most recent to oldest [Reference Range]: 1 Height 180 cm (10/15/20 9:05 AM) Weight 91.9 kg (10/15/20 9:05 AM) Oxygen Saturation [94-100 %] 97 % (10/15/20 9:05 AM) Pulse Rate [55-90 bpm] 71 bpm (10/15/20 9:05 AM) Body Mass Index [18.5-24.99] 28.36 *H* (10/15/20 9:05 AM) Blood Pressure [90-138/55-84 mm Hg] 122/ 72mm Hg (10/15/20 9:05 AM) Mode of Delivery (Oxygen) Room air (10/15/20 9:05 AM) Blood pressure sites Arm, left (10/15/20 9:05 AM) Weight Obtained Via Standing scale (10/15/20 9:05 AM) Social History Social History Type Response Smoking Status Former smoker, quit more than 30 days ago; Other: Pt quit smoking 09/2020; entered on: 10/15/20 Sex
--- OUTSIDE RECORDS SUMMARY | 2023-11-03 01:22 | XMS_ITS | Continuity of Care Document ---
Author Organization [facility] Address [address] [place] [address] ve [address] [place] [address]- Care Team Providers Care Senior Maintenance Mechanic Name Role Phone Sho Lyman NP Primary Care Physician [place] [facility] [place] - 10/22/[address] [place] [phone]- Attending Physician: Hansa Hughes MD Allergies, Adverse [...] [Reference Range]: 1 Height 180 cm (10/15/20 2:42 PM) Pulse Rate [55-90 bpm] 79 bpm (10/15/20 2:42 PM) Blood Pressure [90-138/55-84 mm Hg] 133/ 88mm Hg (10/15/20 2:42 PM) Temperature [96.8-100.4 DegF] 97.6 DegF (10/15/20 2:42 PM) Blood pressure sites Arm, right (10/15/20 2:42 PM) Temperature Route Temporal (10/15/20 2:42 PM) Social History Social History Type Response Smoking Status Former smoker, quit more than 30 days ago; Other: Pt quit smoking 09/2020; entered on: 10/15/20 Sex
--- NOTE | 2023-11-03 02:32 | P.HPHOSP_ITS ---
History of Present Illness Date of Service: 11/03/23 Chief Complaint: Abdominal pain This is a 58-year-old male with pertinent history of hep C cirrhosis who presents to the emergency department for evaluation of flank pain. Patient is Marshallese speaking and history obtained with the help his . Patient started having right-sided flank pain 2 days ago. Initially it was intermittent but progressed to being constant. Also has associated nausea and urinary hesitancy. No history of kidney stones in the past. Does have a right benign kidney cyst. Patient ate a sandwich with salmon 2 days ago and had nausea and vomiting soon after. Patient has also developed fevers and chills. No chest discomfort, palpitations, shortness of breath, changes in bowel habits. In the emergency department, patient was found to be septic and imaging concerning for calculus at the right ureterovesical junction with moderate right hydronephrosis. Review of Systems 2 Constitutional: Constitutional: Reports fatigue Cardiovascular: Cardiovascular: Reports no additional cardiovascular complaints Respiratory: Respiratory: Reports no additional respiratory complaints Gastrointestinal: Gastrointestinal: Reports abdominal pain, Reports nausea and Reports vomiting Genitourinary: Genitourinary: Reports urinary hesitancy Endocrine: Endocrine: Reports fatigue [facility] Medical History Cirrhosis Pertinent family history: No family history of early CAD Social History Advance Directives: No Advance Directives Information Provided: Yes Do you have a plan to hurt others: No Plan Meds Allergies Allergy/AdvReac Type Severity Reaction Status Date / Time procaine [From Novocain] Allergy Anaphylaxis Verified 11/02/23 19:58 Physical Exam 2 Vital Signs and Narrative: Vital Signs: Last Vital Signs Temp 98.2 F 11/03/23 00:26 Pulse 73 11/03/23 00:26 Resp 16 11/03/23 00:26 BP 115/73 11/03/23 00:26 Pulse Ox 95 11/03/23 00:26 O2 Del Method Room Air 11/03/23 00:26 BMI result Body Mass Index 26.7 Middle-aged male lying in bed in no distress Neck supple, no JVD Regular rate and rhythm, S1-S2 heard Regular breath sounds bilaterally, no wheezing or crackles appreciated Abdomen soft, no guarding, no rigidity, right CVA tenderness Patient is awake, alert and oriented to self, place, time and person ; no focal motor deficit Psych: Normal mood No pedal edema Results Labs 11/02/23 20:38 11/02/23 20:37 Labs: Laboratory Results - last 24 hr 11/02/23 11/02/23 11/03/23 20:37 20:38 00:36 MCV 88.7 MCH 30.6 MCHC 34.5 RDW 12.9 Plt Count 89 L MPV 11.5 Immature Gran % (Auto) 1.0 H Neut % (Auto) 87.5 H Lymph % (Auto) 3.6 L [place] % (Auto) 6.5 Eos % (Auto) 0.9 Baso % (Auto) 0.5 Lymph # (Auto) 0.5 L [place] # (Auto) 0.8 Eos # (Auto) 0.1 Baso # (Auto) 0.1 Abs Immat Gran (auto) 0.13 H Absolute Neuts (auto) 11.3 H Absolute Nucleated RBC 0.000 Nucleated RBC % (auto) 0.0 Smear Tech's Comments VERIFIED Anion Gap 14 Estim Creat Clear Calc 47.4 Estimated GFR 41 Random Glucose 114 Lactic Acid 1.5 1.1 Calcium 9.4 Total Bilirubin 1.8 H AST 20 ALT 15 Alkaline Phosphatase 57 Total Protein 7.1 Albumin 4.2 Lipase 6 L Urine Color Dark Yellow Urine Appearance Turbid Urine pH 5.5 Ur Specific [place] 1.025 Urine Protein 100 (2+) H Urine Glucose (UA) Negative Urine Ketones Trace Urine Blood Large (3+) H Urine Nitrite Positive H Ur Leukocyte Esterase Large (3+) H Urine RBC 3-5 H Urine WBC >50 H Ur Squamous Epith Cells 3-5 Urine Bacteria 4+ Hyaline Casts 0-2 Influenza Type A (PCR) NEGATIVE Influenza Type B (PCR) NEGATIVE RSV RNA Qual (PCR) NEGATIVE SARS-CoV-2 RNA (RT-PCR) NEGATIVE Imaging Radiologist's Impressions: Impressions Chest X-Ray 11/02/23 19:56 IMPRESSION: Unremarkable examination. Electronically signed by: Cindy Zhang MD 11/02/2023 08:34 PM EDT RP Abdomen/Pelvis CT 11/03/23 00:58 IMPRESSION: 1. Single 4.5 mm x 2 mm calculus at the right ureterovesicular junction associated with moderate-marked right hydronephrosis and ureterectasis. No additional urolithiasis. 2. Cholelithiasis. 3. Mild diffuse enlargement of the prostate. Electronically signed by: Anatoly López MD 11/03/2023 01:50 AM EDT RP Assessment and Plan (1) Acute pyelonephritis: Status: Acute (2) Ureterolithiasis: Status: Acute Plan This is a 58-year-old male with pertinent history of hep C cirrhosis who presents to the emergency department for evaluation of flank pain. Patient is Marshallese speaking and history obtained with the help his . #. Sepsis due to acute UTI with clinical pyelonephritis and right ureterolithiasis with hydronephrosis: Resuscitated with IV crystalloids. Initiating empiric IV ceftriaxone. IV opioids p.r.n. for analgesia. Consulted Urology, appreciate assistance. Monitor blood culture and urine culture. Lactic acid obtained #. Elevated creatinine: Unknown baseline. TOBIAS versus CKD. Monitor with crystalloid resuscitation. Avoid nephrotoxins. #. Hep C cirrhosis: Outpatient follow-up Med rec pending DVT prophylaxis: Mechanical Full code Admit as inpatient and will require two night minimum hospital stay for IV antibiotics (as above), which is not possible in a lesser acute setting. Quality Stroke Does the patient have a stroke diagnosis?: No VTE Prior VTE?: No VTE Risk Level:: Medical - moderate - high VTE Device Contraindication: N/A - Device Ordered VTE Drug Contraindication: Treatment Not Indicated
[2023-11-03] MEDS: Tamsulosin HCL 0.4 MG CAPSULE PO (03:53)
[2023-11-03] MEDS: Acetaminophen 325 MG TABLET 650 MG PO (03:56)
[2023-11-03 05:19] LABS: Hemoglobin 14.3 g/dl (14.0-18.0); PLT CLUMP 1
[2023-11-03 05:21] LABS: Hematocrit 41.8 % (42.0-52.0); Mean Corpuscular HGB Conc 34.2 g/dl (31.0-36.0); Mean Corpuscular Hemoglobin 30.8 pg (27.0-33.0); Mean Corpuscular Volume 89.9 fL (80.0-98.0); Mean Platelet Volume 12.1 fL (9.4-12.4); Platelet Count 73 X10*3/uL (160-400); Red Blood Count 4.65 X10*6/uL (4.60-5.80); White Blood Count 10.9 X10*3/uL (4.8-10.8)
[2023-11-03 05:39] LABS: Anion Gap 13 (12-20); Blood Urea Nitrogen 21 mg/dL (9-16); Calcium 8.4 mg/dL (8.4-10.2); Carbon Dioxide 20 mmol/L (22-29); Chloride 108 mmol/L (96-108); Creatinine Clr Calc Pharmacy 48.5; Estimated Glomerular Filt Rate 42; Glucose Random 112 mg/dL (60-115); Potassium 4.1 mmol/L (3.3-5.1); Sodium 137 mmol/L (135-145)
--- NOTE | 2023-11-03 08:53 | PHA.MEDREC ---
Pharmacy Consult ? Medication Reconciliation Pharmacy has completed the medication reconciliation. Spoke to patient's over phone who only reported daily multivitamin
[2023-11-03 09:27] LABS: Alanine Aminotransferase 13 U/L (0-40); Albumin Level 3.4 g/dL (3.5-5.0); Alkaline Phosphatase 46 U/L (39-117); Aspartate Amino Transferase 18 U/L (5-37); Bilirubin Direct 0.5 mg/dL (0.0-0.5); Bilirubin Total 1.2 mg/dL (0.0-1.0); Total Protein 5.8 g/dL (6.5-8.0)
[2023-11-03] MEDS: 0.9 % Sodium Chloride Flush 3 ML SYRINGE IVFLUSH ×2 (09:55→17:01)
--- NOTE | 2023-11-03 09:59 | PC.NURSE ---
Resumed care of pt at 0700. Pt resting in bed quietly, a/ox4, no increased WOB/SOB, lung sounds cta bilaterally, s1 and s2 heard, abdomen soft and non-tender, no pain on palpation. Vital signs updated, pt states pain is a 3/10 at this time, call hernandez within reach, pt aware of plan of care.
--- NOTE | 2023-11-03 10:58 | HO.PM.IMPN ---
Subjective Subjective Date of Service: 11/03/23 Interval History: seen and examined this AM reports pain is intermittent and about the same Review of Systems Negative except HPI/interval history. Physical Exam Vital Signs: Vital Signs: Last Vital Signs Temp 99.4 F 11/03/23 09:53 Pulse 78 11/03/23 09:53 Resp 20 11/03/23 09:56 BP 115/74 11/03/23 09:53 Pulse Ox 93 11/03/23 09:53 O2 Del Method Room Air 11/03/23 09:53 BMI result Body Mass Index 26.7 Const: Other: General - no acute distress, appears comfortable Cardiovascular - regular rate and rhythm, S1-S2 Lungs - normal respiratory effort, clear to auscultation bilaterally, no wheezing Abdomen - soft, nontender, no rebound or guarding; mild R flank TTP Extremities - no edema bilaterally Neuro - awake and alert, no focal deficits Objective Data Active Medications Acetaminophen (Acetaminophen 325 Mg Tablet) 650 mg PO Q6H PRN PRN Reason: Pain, Mild (Pain Scale 1-3), fever or headache Last Admin: 11/03/23 03:56 Dose: 650 mg Documented By: SUNITHA Calcium Carbonate (Calcium Carbonate 750 Mg Tab.Chew) 750 mg PO Q4H PRN PRN Reason: Heartburn Ceftriaxone Sodium 1 gm/ (Sodium Chloride) 50 mls @ 100 mls/hr IV Q24H NASRA Magnesium Hydroxide (Milk Of Magnesia 30 Ml Oral.Susp) 30 ml PO DAILY PRN PRN Reason: Constipation Melatonin (Melatonin 3 Mg Tablet) 6 mg PO BEDTIME PRN PRN Reason: Insomnia Morphine Sulfate (Morphine Sulfate 2 Mg/Ml Cartridge) 2 mg IVPUSH Q4H PRN; Protocol PRN Reason: Pain, Severe (Pain Scale 7-10) Ondansetron HCl (Ondansetron Hcl 4 Mg/2 Ml Vial) 4 mg IVPUSH Q8H PRN PRN Reason: Nausea and Vomiting Sodium Chloride (0.9 % Sodium Chloride Flush 3 Ml Syringe) 3 ml IVFLUSH QSHIFT [facility] Last Admin: 11/03/23 09:55 Dose: 3 ml Documented By: FAVIO Labs 11/03/23 04:36 11/03/23 04:36 Labs: Laboratory Results - last 24 hr 11/02/23 11/02/23 11/03/23 20:37 20:38 00:36 MCV 88.7 MCH 30.6 MCHC 34.5 RDW 12.9 Plt Count 89 L MPV 11.5 Immature Gran % (Auto) 1.0 H Neut % (Auto) 87.5 H Lymph % (Auto) 3.6 L [place] % (Auto) 6.5 Eos % (Auto) 0.9 Baso % (Auto) 0.5 Lymph # (Auto) 0.5 L [place] # (Auto) 0.8 Eos # (Auto) 0.1 Baso # (Auto) 0.1 Abs Immat Gran (auto) 0.13 H Absolute Neuts (auto) 11.3 H Absolute Nucleated RBC 0.000 Nucleated RBC % (auto) 0.0 Smear Tech's Comments VERIFIED Anion Gap 14 Estim Creat Clear Calc 47.4 Estimated GFR 41 Random Glucose 114 Lactic Acid 1.5 1.1 Calcium 9.4 Total Bilirubin 1.8 H Direct Bilirubin AST 20 ALT 15 Alkaline Phosphatase 57 Total Protein 7.1 Albumin 4.2 Lipase 6 L Urine Color Dark Yellow Urine Appearance Turbid Urine pH 5.5 Ur Specific [place] 1.025 Urine Protein 100 (2+) H Urine Glucose (UA) Negative Urine Ketones Trace Urine Blood Large (3+) H Urine Nitrite Positive H Ur Leukocyte Esterase Large (3+) H Urine RBC 3-5 H Urine WBC >50 H Ur Squamous Epith Cells 3-5 Urine Bacteria 4+ Hyaline Casts 0-2 Influenza Type A (PCR) NEGATIVE Influenza Type B (PCR) NEGATIVE RSV RNA Qual (PCR) NEGATIVE SARS-CoV-2 RNA (RT-PCR) NEGATIVE 11/03/23 04:36 MCV 89.9 MCH 30.8 MCHC 34.2 RDW 13.0 Plt Count 73 L MPV 12.1 Immature Gran % (Auto) Neut % (Auto) Lymph % (Auto) [place] % (Auto) Eos % (Auto) Baso % (Auto) Lymph # (Auto) [place] # (Auto) Eos # (Auto) Baso # (Auto) Abs Immat Gran (auto) Absolute Neuts (auto) Absolute Nucleated RBC 0.000 Nucleated RBC % (auto) 0.0 Smear Tech's Comments Anion Gap 13 Estim Creat Clear Calc 48.5 Estimated GFR 42 Random Glucose 112 Lactic Acid Calcium 8.4 D Total Bilirubin 1.2 H Direct Bilirubin 0.5 AST 18 ALT 13 Alkaline Phosphatase 46 Total Protein 5.8 L Albumin 3.4 L Lipase Urine Color Urine Appearance Urine pH Ur Specific [place] Urine Protein Urine Glucose (UA) Urine Ketones Urine Blood Urine Nitrite Ur Leukocyte Esterase Urine RBC Urine WBC Ur Squamous Epith Cells Urine Bacteria Hyaline Casts Influenza Type A (PCR) Influenza Type B (PCR) RSV RNA Qual (PCR) SARS-CoV-2 RNA (RT-PCR) Assessment and Plan (1) Acute pyelonephritis: Status: Acute Plan 58 yo M with hep C admitted for Sepsis due to pyelo due to obstructing stone. 1. Sepsis due to pyelonephritis 1a. Obstructing stone continue antibiotics f/u cultures urology consult -- d/w Dr. Blackburn; will give an additional 24 hours of medical treatment to see if stone will pass; will keep NPO after midnight in case 2. TOBIAS likely multifactorial including sepsis and obstructing stone SCr slight improvement continue IVF 3. Reported hep C outpatient f/u 4. Hyperbilirubinemia 1.8 on admission, now down to 1.2 likely secondary to sepsis no evidence of cirrhosis on imaging 5. thromboctypenia unclear baseline monitor Full Code DVT pptx -- mechanical due to possible surgical intervention + thrombocytopenia Quality Stroke Does the patient have a stroke diagnosis?: No VTE Prior VTE?: No VTE Risk Level:: Medical - moderate - high VTE Device Contraindication: N/A - Device Ordered VTE Drug Contraindication: Treatment Not Indicated
[2023-11-03] MEDS: Lactated Ringers 1,000 ML 100 ML IVCONT ×2 (11:20→22:15)
--- NOTE | 2023-11-03 11:21 | MHC.CM.PN ---
PT REPORTS HE LIVES WITH HIS AND IS INDEPENDENT WITH CARE HE HAS NO DME AND NO SERVICES HE REPORTS HIS IS HIS HCP, COPY REQUESTED PCP: LAVERN NOONAN DCP: HOME NO SERVICES TO TRANSPORT
--- NOTE | 2023-11-03 19:47 | PC.NURSE ---
Assumed care of pt. Pt lying on stretcher, no acute distress at this time. Continuing plan of care.
[2023-11-03] MEDS: ondansetron HCL 4 MG/2 ML VIAL IVPUSH (20:43)
[2023-11-03] MEDS: Calcium Carbonate 750 MG TAB.CHEW PO (20:44)
[2023-11-03] MEDS: Tamsulosin HCL 0.4 MG CAPSULE 0.8 MG PO (20:44)
[2023-11-03] MEDS: Morphine Sulfate 2 MG/ML CARTRIDGE IVPUSH (22:09)
[2023-11-03] MEDS: Melatonin 3 MG TABLET 6 MG PO (22:09)
[2023-11-04] MEDS: 0.9 % Sodium Chloride Flush 3 ML SYRINGE IVFLUSH ×3 (01:54→13:16)
[2023-11-04] MEDS: cefTRIAXone sodium 2 GM in 0.9 % Sodium Chloride 50 ML IV (02:57)
[2023-11-04 05:54] VITALS: TEMP 37.6
--- NOTE | 2023-11-04 07:20 | PM.UROCN ---
History of Present Illness Consult details Consult date: 11/03/23 Narrative: Deann is a 58 year old male admitted with right flank pain. CTAP - right hydro with 4 mm UVJ stone. Pt was clinically improved when evaluated. Review of Systems Review of Systems: Yes all other systems are reviewed and are negative Constitutional: Constitutional: Reports no additional constitutional complaints Eyes: Eyes: Reports no additional eye complaints ENT: Reports system reviewed and no additional complaints, except as documented Cardiovascular: Cardiovascular: Reports no additional cardiovascular complaints Respiratory: Respiratory: Reports no additional respiratory complaints Gastrointestinal: Gastrointestinal: Reports no additional gastrointestinal complaints Genitourinary: Genitourinary: Reports as per HPI Musculoskeletal: Musculoskeletal: Reports no additional musculoskeletal complaints Integumentary/Breasts: Skin/Breast: Reports system reviewed and no additional complaints, except as docu Neurologic: Reports system reviewed and no additional complaints, except as documented Psychiatric: Psychiatric: Reports no additional psychiatric complaints Endocrine: Endocrine: Reports no additional endocrine complaints Hematologic/Lymphatic: Hematologic/Lymphatic: Reports no additional hematologic/lymphatic complaints Allergic/Immunologic: Allergic/Immunologic: Reports no additional allergic/immunologic complaints [facility] Past Medical History Medical History Cirrhosis Social History Social History Alcohol intake: never Patient Tobacco Use Status: Tobacco use Unknown Smoked in Last 30 Days: No Use of substances other than those prescribed or required for medical reasons: No Any prior treatment program specific to substance use: No Advance Directives: No Advance Directives Information Provided: Yes Do you have a plan to hurt others: No Plan Nutrition Risks: No Nutritional Risk service: No Meds Allergies Allergy/AdvReac Type Severity Reaction Status Date / Time procaine [From Novocain] Allergy Anaphylaxis Verified 11/02/23 19:58 Active Medications: Current Medications Acetaminophen (Acetaminophen 325 Mg Tablet) 650 mg PO Q6H PRN PRN Reason: Pain, Mild (Pain Scale 1-3), fever or headache Last Admin: 11/03/23 03:56 Dose: 650 mg Calcium Carbonate (Calcium Carbonate 750 Mg Tab.Chew) 750 mg PO Q4H PRN PRN Reason: Heartburn Last Admin: 11/03/23 20:44 Dose: 750 mg Ceftriaxone Sodium 2 gm/ (Sodium Chloride) 50 mls @ 100 mls/hr IV Q24H [facility] Last Infusion: 11/04/23 03:41 Dose: Infused Magnesium Hydroxide (Milk Of Magnesia 30 Ml Oral.Susp) 30 ml PO DAILY PRN PRN Reason: Constipation Melatonin (Melatonin 3 Mg Tablet) 6 mg PO BEDTIME PRN PRN Reason: Insomnia Last Admin: 11/03/23 22:09 Dose: 6 mg Morphine Sulfate (Morphine Sulfate 2 Mg/Ml Cartridge) 2 mg IVPUSH Q4H PRN; Protocol PRN Reason: Pain, Severe (Pain Scale 7-10) Last Admin: 11/03/23 22:09 Dose: 2 mg Ondansetron HCl (Ondansetron Hcl 4 Mg/2 Ml Vial) 4 mg IVPUSH Q8H PRN PRN Reason: Nausea and Vomiting Last Admin: 11/03/23 20:43 Dose: 4 mg Sodium Chloride (0.9 % Sodium Chloride Flush 3 Ml Syringe) 3 ml IVFLUSH QSHIFT [facility] Last Admin: 11/04/23 07:07 Dose: 3 ml Tamsulosin HCl (Tamsulosin Hcl 0.4 Mg Capsule) 0.8 mg PO BEDTIME [facility] Last Admin: 11/03/23 20:44 Dose: 0.8 mg Home Medications ?Medication ?Instructions ?Recorded ?Confirmed ?Last Taken ?Type multivitamin 1 tab PO DAILY 11/03/23 11/03/23 Unknown History Physical Exam Vital Signs: Vital Signs: Last Vital Signs Temp 99.6 F 11/04/23 05:54 Pulse 88 11/03/23 20:20 Resp 16 11/03/23 20:20 BP 143/80 H 11/03/23 20:20 Pulse Ox 98 11/03/23 20:20 O2 Del Method Room Air 11/03/23 20:20 BMI result Body Mass Index 26.7 Const: General: healthy appearing, no acute distress and well developed Orientation/consciousness: patient oriented x3 HEENT: Head: Yes normocephalic and Yes atraumatic Eyes: Conjunctivae: conjunctivae normal Neck: Neck: Yes normal visual inspection Chest: Chest palpation & inspection: normal inspection of the chest Resp: Effort & Inspection: normal respiratory effort Cardio: Rate: regular rate GI: Inspection: Yes normal to inspection Palpation (GI): Soft to palpation Skin: General skin exam: no rashes or lesions noted Neuro: General: patient oriented x3 Extrem: General: No pedal edema Psych: Appearance: grossly normal Affect: normal affect Results Labs 11/03/23 04:36 11/03/23 04:36 Labs: Abnormal lab results 11/03/23 Range/Units 04:36 Total Bilirubin 1.2 H (0.0-1.0) mg/dL Total Protein 5.8 L (6.5-8.0) g/dL Albumin 3.4 L (3.5-5.0) g/dL Liver Function 11/03/23 Range/Units 04:36 Total Bilirubin 1.2 H (0.0-1.0) mg/dL Direct Bilirubin 0.5 (0.0-0.5) mg/dL AST 18 (5-37) U/L ALT 13 (0-40) U/L Alkaline Phosphatase 46 (39-117) U/L Albumin 3.4 L (3.5-5.0) g/dL Urine 11/02/23 Range/Units 20:37 Urine Color Dark Yellow Urine Appearance Turbid Urine pH 5.5 (5.0-9.0) Ur Specific [place] 1.025 (1.005-1.025) Urine Protein 100 (2+) H (Neg-Trace) mg/dL Urine Glucose (UA) Negative (Negative) mg/dL Imaging Abdomen CT scan report/results: report reviewed and image reviewed CT scan - pelvis: report reviewed and image reviewed Additional studies: Date of Service: 11/03/23 CT ABDOMEN AND PELVIS WITHOUT CONTRAST CLINICAL INFORMATION: Flank pain. No rule out kidney stone. COMPARISON: None available. TECHNIQUE: Multidetector volumetric imaging was performed from the superior aspect of the liver through the pubic symphysis. Sagittal and coronal reformatted images were obtained on the technologist's workstation. This CT examination was performed using dose optimization techniques as appropriate, variously including the following: *Automated exposure control *Adjustment of mA and/or kV according to patient size (this includes techniques or standardized protocols for targeted exams where dose is matched to indication/reason for exam; i.e. extremities or head) *Use of iterative reconstruction technique DLP: 615 mGy-cm FINDINGS: LUNG BASES: Mild bibasilar posterior dependent atelectasis. LIVER, GALLBLADDER, AND BILIARY TREE: 1.7 cm diameter eggshell calcification of the gallbladder lumen consistent with cholelithiasis. Normal appearance of the liver. PANCREAS: Unremarkable. SPLEEN: Unremarkable. ADRENAL GLANDS: Unremarkable. KIDNEYS AND URETERS: A single 4.5 mm x 2 mm calculus is present at the right ureterovesicular junction. Moderate-marked right hydronephrosis and ureterectasis is present. Moderate right perinephric inflammatory changes are identified. No additional urolithiasis identified. Incidental note made of a 3.6 cm rounded benign-appearing low-density simple cyst within the right kidney requiring no additional imaging follow-up. BLADDER: Decompressed GASTROINTESTINAL TRACT: The appendix is not visualized. Curvilinear density is present at the base of the cecum and may represent suture material related to prior appendectomy. No free intraperitoneal fluid or gas collections. ABDOMINAL WALL: No significant hernia is appreciated. LYMPH NODES: Normal. VASCULAR: Mild scattered calcific atherosclerosis PELVIC VISCERA: The prostate measures 4 cm in AP dimension, slightly above the expected limits of normal size. OSSEOUS STRUCTURES: Incidental note made of a synovial inclusion cyst associated with the anterior margin of the right femoral head. Partially visualized mild posterior broad-based disc bulge L5-S1. IMPRESSION: 1. Single 4.5 mm x 2 mm calculus at the right ureterovesicular junction associated with moderate-marked right hydronephrosis and ureterectasis. No additional urolithiasis. 2. Cholelithiasis. 3. Mild diffuse enlargement of the prostate. Assessment and Plan (1) Ureterolithiasis: Status: Acute (2) Hydronephrosis, right: Status: Acute (3) UTI (urinary tract infection): Status: Acute (4) BPH (benign prostatic hyperplasia): Status: Acute Plan Currently on IV abx. Recommend IV Fluid hydration, flomax strain urine Will monitor conservatively, stone is small and pt may be able to pass Procedures Date of Service Date of Service: 11/04/23
--- NOTE | 2023-11-04 08:09 | P.PNIM_ITS ---
Subjective Subjective Date of Service: 11/04/23 Interval History: Seen in follow up for clinical pyelo, obstructive uropathy Interval history: Reports intermittent 3-4/10 pain in the RLQ/pelvis. No dysuria, hematuria. Remains NPO. Creatinine improving. Still with intermittent fevers Review of Systems Review of Systems: Yes all other systems are reviewed and are negative Physical Exam 2 Vital Signs: Vital Signs: Last Vital Signs Temp 99.6 F 11/04/23 05:54 Pulse 88 11/03/23 20:20 Resp 16 11/03/23 20:20 BP 143/80 H 11/03/23 20:20 Pulse Ox 98 11/03/23 20:20 O2 Del Method Room Air 11/03/23 20:20 BMI result Body Mass Index 26.7 Constitutional - Awake and Alert, No apparent distress Eyes - PERRLA, EOMI Cardiovascular - S1S2, RRR, No edema Respiratory - Normal lung expansion, Normal respiratory effort, No respiratory distress, CTA bilaterally Gastrointestinal - NT / ND; +BS; No rebound or guarding Extremities - no calf tenderness bilaterally, no swelling Skin - Warm/Dry Neurological - Alert & oriented x3 Psychological - Appropriate affect Objective Data Active Medications Acetaminophen (Acetaminophen 325 Mg Tablet) 650 mg PO Q6H PRN PRN Reason: Pain, Mild (Pain Scale 1-3), fever or headache Last Admin: 11/03/23 03:56 Dose: 650 mg Documented By: SUNITHA Calcium Carbonate (Calcium Carbonate 750 Mg Tab.Chew) 750 mg PO Q4H PRN PRN Reason: Heartburn Last Admin: 11/03/23 20:44 Dose: 750 mg Documented By: KEIRA Ceftriaxone Sodium 2 gm/ (Sodium Chloride) 50 mls @ 100 mls/hr IV Q24H [facility] Last Infusion: 11/04/23 03:41 Dose: Infused Documented By: EMMY Magnesium Hydroxide (Milk Of Magnesia 30 Ml Oral.Susp) 30 ml PO DAILY PRN PRN Reason: Constipation Melatonin (Melatonin 3 Mg Tablet) 6 mg PO BEDTIME PRN PRN Reason: Insomnia Last Admin: 11/03/23 22:09 Dose: 6 mg Documented By: KEIRA Morphine Sulfate (Morphine Sulfate 2 Mg/Ml Cartridge) 2 mg IVPUSH Q4H PRN; Protocol PRN Reason: Pain, Severe (Pain Scale 7-10) Last Admin: 11/03/23 22:09 Dose: 2 mg Documented By: KEIRA Ondansetron HCl (Ondansetron Hcl 4 Mg/2 Ml Vial) 4 mg IVPUSH Q8H PRN PRN Reason: Nausea and Vomiting Last Admin: 11/03/23 20:43 Dose: 4 mg Documented By: KEIRA Sodium Chloride (0.9 % Sodium Chloride Flush 3 Ml Syringe) 3 ml IVFLUSH QSHIFT [facility] Last Admin: 11/04/23 07:07 Dose: 3 ml Documented By: TERESSA Tamsulosin HCl (Tamsulosin Hcl 0.4 Mg Capsule) 0.8 mg PO BEDTIME [facility] Last Admin: 11/03/23 20:44 Dose: 0.8 mg Documented By: KEIRA Labs 11/04/23 08:45 11/04/23 08:45 Labs: Laboratory Results - last 24 hr 11/03/23 04:36 Total Bilirubin 1.2 H Direct Bilirubin 0.5 AST 18 ALT 13 Alkaline Phosphatase 46 Total Protein 5.8 L Albumin 3.4 L Microbiology Microbiology Results: Microbiology 11/03/23 04:36 Blood Culture - Preliminary Blood - Venous No growth after 24 hours. 11/03/23 00:38 Blood Culture - Preliminary Blood - Venous Prelim: GNR Gram Stain only 11/02/23 20:37 Blood Culture - Preliminary Blood - Venous Prelim: GNR Gram Stain only 11/03/23 00:36 Blood Culture - Final Blood - Venous Prelim: GNR Gram Stain only 11/02/23 20:37 Urine Culture - Preliminary Urine clean catch - Clean Catch Midstream Culture in progress. Assessment and Plan (1) UTI (urinary tract infection): Status: Acute (2) Hydronephrosis, right: Status: Acute (3) BPH (benign prostatic hyperplasia): Status: Acute Plan 58 yo M with hep C admitted for Sepsis due to pyelo due to obstructing stone. Sepsis due to pyelonephritis and obstructive uropathy continue ceftriaxone increased to 2g f/u cultures urology consult -- d/w Dr. Blackburn; will give an additional 24 hours of medical treatment to see if stone will pass. OK to advance diet. NPO after midnight in case of procedure (Dr. Edward assuming care) continue ivf flomax Gram Negative bacteremia 2g IV ceftriaxone (initiated 11/02) ID consult Repeat cultures negative thus far, follow Acute kidney injury likely multifactorial including sepsis and obstructing stone SCr returned to baseline continue IVF follow renal function/lytes Reported hep C outpatient f/u Hyperbilirubinemia 1.8 on admission, now down to 1.2. No severe sepsis likely secondary to sepsis no evidence of cirrhosis on imaging thromboctypenia unclear baseline, seems chronic given improvement in infection. Doubt severe sepsis monitor Full Code DVT pptx -- mechanical due to possible surgical intervention + thrombocytopenia requires ongoing inpt stay due to pyelonephritis still with fevers and gram negative bacteremia awaiting final cultures on iv abx and requiring expert consultation Quality Stroke Does the patient have a stroke diagnosis?: No VTE Prior VTE?: No VTE Risk Level:: Medical - moderate - high VTE Device Contraindication: N/A - Device Ordered VTE Drug Contraindication: Treatment Not Indicated
[2023-11-04] MEDS: Multivitamin TABLET 1 TAB PO (08:45)
[2023-11-04 09:06] LABS: MANUAL DIFF FLAG NO
[2023-11-04 09:09] LABS: Basophils Percent Auto 0.4 % (0-2); Eosinophils Absolute Auto 0.1 X10*3/uL (0.0-0.4); Eosinophils Percent Auto 1.7 % (0-4); Hematocrit 38.5 % (42.0-52.0); Hemoglobin 13.3 g/dl (14.0-18.0); Imm Gran Abs Auto 0.05 X10*3/uL (0.00-0.03); Imm Gran Pct Auto 0.7 % (0.0-0.4); Lymphocytes Absolute Auto 0.7 X10*3/uL (1.2-4.9); Lymphocytes Percent Auto 9.3 % (20-40); Mean Corpuscular HGB Conc 34.5 g/dl (31.0-36.0); Mean Corpuscular Hemoglobin 30.8 pg (27.0-33.0); Mean Corpuscular Volume 89.1 fL (80.0-98.0); Mean Platelet Volume 12.1 fL (9.4-12.4); Monocytes Absolute Auto 0.7 X10*3/uL (0.1-1.2); Monocytes Percent Auto 9.9 % (2-11); Neutrophils Absolute Auto 5.5 x10*3/uL (2.0-8.3); Red Blood Count 4.32 X10*6/uL (4.60-5.80); Red Cell Distribution Width 12.8 % (11.0-16.0); White Blood Count 7.1 X10*3/uL (4.8-10.8)
[2023-11-04 09:10] LABS: Platelet Count 76 X10*3/uL (160-400)
[2023-11-04 09:23] LABS: Anion Gap 9 (12-20); Blood Urea Nitrogen 18 mg/dL (9-16); Calcium 8.2 mg/dL (8.4-10.2); Carbon Dioxide 24 mmol/L (22-29); Chloride 109 mmol/L (96-108); Creatinine Clr Calc Pharmacy 67.5; Estimated Glomerular Filt Rate > 60; Glucose Random 96 mg/dL (60-115); Potassium 3.9 mmol/L (3.3-5.1); Sodium 138 mmol/L (135-145)
[2023-11-04] MEDS: Lactated Ringers 1,000 ML 100 ML IVCONT ×2 (13:15→23:24)
[2023-11-04 16:32] VITALS: BP 142/83; PULSE 67; RESP 18; TEMP 37.2; O2SAT 92
--- NOTE | 2023-11-04 17:08 | MHC.EDTECH ---
Dinner tray given to patient
[2023-11-04 17:19] VITALS: BP 142/83; PULSE 75; RESP 14; TEMP 37.7; O2SAT 95
[2023-11-04 19:36] VITALS: BP 159/85; PULSE 72; RESP 18; TEMP 36.8; O2SAT 96
[2023-11-04] MEDS: Tamsulosin HCL 0.4 MG CAPSULE 0.8 MG PO (21:18)
[2023-11-05] MEDS: cefTRIAXone sodium 2 GM in 0.9 % Sodium Chloride 50 ML IV (01:13)
[2023-11-05 03:42] VITALS: BP 125/80; PULSE 66; RESP 18; TEMP 37.3; O2SAT 94
[2023-11-05 07:30] LABS: Anion Gap 9 (12-20); Blood Urea Nitrogen 16 mg/dL (9-16); Calcium 8.4 mg/dL (8.4-10.2); Carbon Dioxide 26 mmol/L (22-29); Chloride 107 mmol/L (96-108); Estimated Glomerular Filt Rate > 60; Glucose Random 95 mg/dL (60-115); Potassium 3.8 mmol/L (3.3-5.1); Sodium 138 mmol/L (135-145)
[2023-11-05 08:00] VITALS: BP 125/79; PULSE 75; RESP 19; TEMP 36.7; O2SAT 99
[2023-11-05] MEDS: Lactated Ringers 1,000 ML 100 ML IVCONT ×2 (09:26→19:15)
[2023-11-05] MEDS: 0.9 % Sodium Chloride Flush 3 ML SYRINGE IVFLUSH (09:27)
[2023-11-05] MEDS: Multivitamin TABLET 1 TAB PO (09:28)
--- NOTE | 2023-11-05 11:00 | HO.PM.IMPN ---
Subjective Subjective Date of Service: 11/05/23 Interval History: no fever since 2 nights ago c/o R groin pain Review of Systems Review of Systems: Yes all other systems are reviewed and are negative Physical Exam Vital Signs: Vital Signs: Last Vital Signs Temp 98.0 F 11/05/23 08:00 Pulse 75 11/05/23 08:00 Resp 19 11/05/23 08:00 BP 125/79 11/05/23 08:00 Pulse Ox 99 11/05/23 08:00 O2 Del Method Room Air 11/05/23 08:00 BMI result Body Mass Index 26.7 Gen: in no acute distress HEENT: sclera anicteric, moist mucus membranes Neck: supple Lungs: clear to auscultation bilaterally Heart: regular rate and rhythm, no murmurs Abd: soft, tender RLQ without rebound, non-distended Ext: no edema Skin: warm/well-perfused Neuro: alert and oriented x3, no focal findings Psych: appropriate affect Objective Data Active Medications Acetaminophen (Acetaminophen 325 Mg Tablet) 650 mg PO Q6H PRN PRN Reason: Pain, Mild (Pain Scale 1-3), fever or headache Last Admin: 11/03/23 03:56 Dose: 650 mg Documented By: SUNITHA Calcium Carbonate (Calcium Carbonate 750 Mg Tab.Chew) 750 mg PO Q4H PRN PRN Reason: Heartburn Last Admin: 11/03/23 20:44 Dose: 750 mg Documented By: KEIRA Lactated Ringer's (Lr) 1,000 mls @ 100 mls/hr IVCONT .Q10H [facility] Last Admin: 11/05/23 09:26 Dose: 100 mls/hr Documented By: SALAZAR Ceftriaxone Sodium 2 gm/ (Sodium Chloride) 50 mls @ 100 mls/hr IV Q24H [facility] Last Infusion: 11/05/23 01:50 Dose: Infused Documented By: ALEXANDER Magnesium Hydroxide (Milk Of Magnesia 30 Ml Oral.Susp) 30 ml PO DAILY PRN PRN Reason: Constipation Melatonin (Melatonin 3 Mg Tablet) 6 mg PO BEDTIME PRN PRN Reason: Insomnia Last Admin: 11/03/23 22:09 Dose: 6 mg Documented By: KEIRA Morphine Sulfate (Morphine Sulfate 2 Mg/Ml Cartridge) 2 mg IVPUSH Q4H PRN; Protocol PRN Reason: Pain, Severe (Pain Scale 7-10) Last Admin: 11/03/23 22:09 Dose: 2 mg Documented By: KEIRA Multivitamins/Vitamin C (Multivitamin Tablet) 1 tab PO DAILY [facility] Last Admin: 11/05/23 09:28 Dose: 1 tab Documented By: SALAZAR Ondansetron HCl (Ondansetron Hcl 4 Mg/2 Ml Vial) 4 mg IVPUSH Q8H PRN PRN Reason: Nausea and Vomiting Last Admin: 11/03/23 20:43 Dose: 4 mg Documented By: KEIRA Sodium Chloride (0.9 % Sodium Chloride Flush 3 Ml Syringe) 3 ml IVFLUSH QSHIFT [facility] Last Admin: 11/05/23 09:27 Dose: 3 ml Documented By: SALAZAR Tamsulosin HCl (Tamsulosin Hcl 0.4 Mg Capsule) 0.8 mg PO BEDTIME [facility] Last Admin: 11/04/23 21:18 Dose: 0.8 mg Documented By: LYSZ Labs 11/04/23 08:45 11/05/23 06:54 Labs: Laboratory Results - last 24 hr 11/05/23 06:54 Anion Gap 9 L Estim Creat Clear Calc 73.0 Estimated GFR > 60 Random Glucose 95 Calcium 8.4 Microbiology Microbiology Results: Microbiology 11/03/23 00:38 Blood Culture - Preliminary Blood - Venous Gram negative ezequiel 11/03/23 00:36 Blood Culture - Final Blood - Venous Escherichia coli 11/02/23 20:37 Blood Culture - Final Blood - Venous Escherichia coli 11/02/23 20:37 Urine Culture - Final Urine clean catch - Clean Catch Midstream Escherichia coli 11/03/23 04:36 Blood Culture - Preliminary Blood - Venous No growth after 48 hours. Assessment and Plan (1) UTI (urinary tract infection): Status: Acute (2) Hydronephrosis, right: Status: Acute (3) BPH (benign prostatic hyperplasia): Status: Acute Plan d3 58yo M with HCV admitted for sepsis due to pyelonephritis due to obstructing 4.5mm R UVJ stone found to have bacteremia sepsis due to pyelonephritis due to obstructing ureterolith with E coli bacteremia - BCx + UCx growing quinolone-resistant E. coli; on ceftriaxone appropriately since 11/02; ID consult pending; Urology following; if pt does not pass stone on own, may need OR; continue tamsulosin + LR TOBIAS - resolved, likely was due to sepsis + obstructing stone hyperbilirubinemia - likely due to infection, resolving thrombocytopenia - unknown baseline; could be chronic due to HCV HCV - outpt mgmt VTE ppx - SCDs dispo - eventual home In my clinical judgment, the patient requires continued inpatient hospitalization for the following reasons: IV fluids, possible surgical intervention Total time managing care of this patient today: 40 minutes. Quality Stroke Does the patient have a stroke diagnosis?: No VTE Prior VTE?: No VTE Risk Level:: Medical - moderate - high VTE Device Contraindication: N/A - Device Ordered VTE Drug Contraindication: Treatment Not Indicated
--- NOTE | 2023-11-05 12:44 | P.CNID_ITS ---
History of Present Illness Data of Consult Service Date: 11/04/23 Primary Care Provider: Sho Lyman NP HPI Reason for consult: fever of unknown origin,bacteremia He presents with nausea and vomiting for two days. He has also right 7/10 abdominal pain. He has enlarged prostate and has seen Urology. Review of Systems 2 Review of Systems: Yes all other systems are reviewed and are negative PMFSH Past Medical History Medical History Cirrhosis Family History Family history: reviewed and not pertinent Social History Social History Household Members: Spouse Housing: Apartment Do you presently have visiting nurse or other home services: No Alcohol intake: never Patient Tobacco Use Status: Tobacco use Unknown Advance Directives Date on File: 11/04/23 service: No Meds Allergies Allergy/AdvReac Type Severity Reaction Status Date / Time procaine [From Novocain] Allergy Anaphylaxis Verified 11/02/23 19:58 Active Medications: Current Medications Acetaminophen (Acetaminophen 325 Mg Tablet) 650 mg PO Q6H PRN PRN Reason: Pain, Mild (Pain Scale 1-3), fever or headache Last Admin: 11/03/23 03:56 Dose: 650 mg Calcium Carbonate (Calcium Carbonate 750 Mg Tab.Chew) 750 mg PO Q4H PRN PRN Reason: Heartburn Last Admin: 11/03/23 20:44 Dose: 750 mg Lactated Ringer's (Lr) 1,000 mls @ 100 mls/hr IVCONT .Q10H [facility] Last Admin: 11/05/23 09:26 Dose: 100 mls/hr Ceftriaxone Sodium 2 gm/ (Sodium Chloride) 50 mls @ 100 mls/hr IV Q24H [facility] Last Infusion: 11/05/23 01:50 Dose: Infused Magnesium Hydroxide (Milk Of Magnesia 30 Ml Oral.Susp) 30 ml PO DAILY PRN PRN Reason: Constipation Melatonin (Melatonin 3 Mg Tablet) 6 mg PO BEDTIME PRN PRN Reason: Insomnia Last Admin: 11/03/23 22:09 Dose: 6 mg Morphine Sulfate (Morphine Sulfate 2 Mg/Ml Cartridge) 2 mg IVPUSH Q4H PRN; Protocol PRN Reason: Pain, Severe (Pain Scale 7-10) Last Admin: 11/03/23 22:09 Dose: 2 mg Multivitamins/Vitamin C (Multivitamin Tablet) 1 tab PO DAILY [facility] Last Admin: 11/05/23 09:28 Dose: 1 tab Ondansetron HCl (Ondansetron Hcl 4 Mg/2 Ml Vial) 4 mg IVPUSH Q8H PRN PRN Reason: Nausea and Vomiting Last Admin: 11/03/23 20:43 Dose: 4 mg Sodium Chloride (0.9 % Sodium Chloride Flush 3 Ml Syringe) 3 ml IVFLUSH QSHIFT [facility] Last Admin: 11/05/23 09:27 Dose: 3 ml Tamsulosin HCl (Tamsulosin Hcl 0.4 Mg Capsule) 0.8 mg PO BEDTIME [facility] Last Admin: 11/04/23 21:18 Dose: 0.8 mg Home Medications ?Medication ?Instructions ?Recorded ?Confirmed ?Last Taken ?Type multivitamin 1 tab PO DAILY 11/03/23 11/03/23 Unknown History Physical Exam 2 Vital Signs: Vital Signs: Last Vital Signs Temp 98.0 F 11/05/23 08:00 Pulse 75 11/05/23 08:00 Resp 19 11/05/23 08:00 BP 125/79 11/05/23 08:00 Pulse Ox 99 11/05/23 08:00 O2 Del Method Room Air 11/05/23 08:00 BMI result Body Mass Index 26.7 Const: General: cooperative HEENT: Head: Yes normal to inspection Face and sinus: Yes normal facial exam Mouth: Normal oral and palatal mucosa present Teeth and gingiva: d entition normal Eyes: General: appearance normal, both eyes and all related structures P upils: Equal, round and reactive pupils present Resp: Effort & Inspection: normal respiratory effort Cardio: Rate: regular rate Rhythm: regular rhythm GI: Palpation (GI): Soft to palpation and nontender : Other: RLQ discomfort,mild General: Yes no CVA tenderness Back/Spine/Pelvis: Back: no CVA tenderness Skin: General skin exam: no rashes or lesions noted Neuro: General: moves all extremities Cranial nerves: Yes Equal, round and reactive pupils present Extrem: General: Yes normal to inspection Psych: Appearance: grossly normal Results Labs 11/04/23 08:45 11/05/23 06:54 Labs: BMP 11/05/23 06:54 Sodium 138 Potassium 3.8 Chloride 107 Carbon Dioxide 26 BUN 16 Creatinine 1.11 Calcium 8.4 Microbiology Microbiology Results: Microbiology 11/03/23 00:38 Blood - Venous Blood Culture - Preliminary Gram negative ezequiel 11/03/23 00:36 Blood - Venous Blood Culture - Final Escherichia coli 11/02/23 20:37 Blood - Venous Blood Culture - Final Escherichia coli 11/02/23 20:37 Urine clean catch - Clean Catch Midstream Urine Culture - Final Escherichia coli 11/03/23 04:36 Blood - Venous Blood Culture - Preliminary No growth after 48 hours. Assessment and Plan (1) BPH (benign prostatic hyperplasia): Status: Acute (2) Hydronephrosis, right: Status: Acute (3) Acute pyelonephritis: Status: Acute Plan Sepsis with fever and tachycardia. He has source likel uTI and kidney stones, mild obstruction,nothing surgical per Urology Would continue Ceftriaxone and switch to po Ceftin to total 14 days/ Follow with Uology
--- NOTE | 2023-11-05 15:29 | PC.NURSE ---
Patient Faby called and requested for Dr. Edward to call her at [phone] ,dr. Edward notified
[2023-11-05 15:47] VITALS: BP 140/79; PULSE 61; RESP 20; TEMP 36.7; O2SAT 97
--- NOTE | 2023-11-05 18:59 | P.PNUR_ITS ---
Subjective Subjective Date of Service: 11/05/23 Interval history: Significant improvement White count has dropped Creatinine normalized to 1.1 Microbiology shows urosepsis with E coli resistant to Levaquin otherwise sensitive Recommend 2 weeks oral antibiotics - Bactrim would make sense Physical Exam 2 Vital Signs: Vital Signs: Last Vital Signs Temp 98.1 F 11/05/23 15:47 Pulse 61 11/05/23 15:47 Resp 20 11/05/23 15:47 BP 140/79 H 11/05/23 15:47 Pulse Ox 97 11/05/23 15:47 O2 Del Method Room Air 11/05/23 15:47 BMI result Body Mass Index 26.7 Const: General: cooperative, healthy appearing, comfortable and no acute distress Orientation/consciousness: patient oriented x3 HEENT: Face and sinus: Yes normal facial exam Mouth: moist mucous membranes Neck: Neck: Yes normal visual inspection, Yes full ROM and Yes trachea midline Chest: Chest palpation & inspection: normal inspection of the chest Resp: Effort & Inspection: normal respiratory effort, able to speak in complete sentences and no respiratory distress GI: Inspection: Yes normal to inspection Back/Spine/Pelvis: Cervical Spine: normal cervical lordosis Thoracic/Lumbar Spine: thoracic and lumbar spine normal to inspection Skin: General skin exam: no rashes or lesions noted Neuro: General: patient oriented x3, tone normal and moves all extremities Extrem: General: Yes normal to inspection and Yes capillary refill normal Urology Results Labs 11/04/23 08:45 11/05/23 06:54 Labs: Laboratory Results - last 24 hr 11/05/23 06:54 Sodium 138 Potassium 3.8 Chloride 107 Carbon Dioxide 26 Anion Gap 9 L BUN 16 Creatinine 1.11 Estim Creat Clear Calc 73.0 Estimated GFR > 60 Random Glucose 95 Calcium 8.4 Progress Note: A&P Assessment and plan (1) E coli bacteremia: Status: Acute (2) UTI (urinary tract infection): Status: Acute (3) BPH (benign prostatic hyperplasia): Status: Acute (4) Hydronephrosis, right: Status: Acute Plan Switch to oral antibiotics Will need 2 weeks on discharge Follow-up Urology 8-10 weeks with renal ultrasound for hydronephrosis resolution add Benadryl BPH Time Spent With Patient Time: Total time managing care of this patient today ____ minutes. Progress Note: Quality Stroke Does the patient have a stroke diagnosis?: No
[2023-11-05 19:33] VITALS: BP 154/86; PULSE 68; RESP 16; TEMP 36.8; O2SAT 93
[2023-11-05] MEDS: Tamsulosin HCL 0.4 MG CAPSULE 0.8 MG PO (21:03)
[2023-11-06] MEDS: cefTRIAXone sodium 2 GM in 0.9 % Sodium Chloride 50 ML IV (01:08)
[2023-11-06 03:11] VITALS: BP 132/78; PULSE 62; RESP 16; TEMP 37.3; O2SAT 94
[2023-11-06] MEDS: Lactated Ringers 1,000 ML 100 ML IVCONT (05:52)
[2023-11-06 06:31] LABS: Hematocrit 40.8 % (42.0-52.0); Hemoglobin 13.7 g/dl (14.0-18.0); Mean Corpuscular HGB Conc 33.6 g/dl (31.0-36.0); Mean Corpuscular Hemoglobin 29.8 pg (27.0-33.0); Mean Corpuscular Volume 88.7 fL (80.0-98.0); Mean Platelet Volume 12.1 fL (9.4-12.4); Red Cell Distribution Width 12.4 % (11.0-16.0); White Blood Count 5.1 X10*3/uL (4.8-10.8)
[2023-11-06 06:32] LABS: Platelet Count 97 X10*3/uL (160-400)
[2023-11-06 06:49] LABS: Alanine Aminotransferase 22 U/L (0-40); Albumin Level 3.2 g/dL (3.5-5.0); Alkaline Phosphatase 50 U/L (39-117); Anion Gap 13 (12-20); Aspartate Amino Transferase 21 U/L (5-37); Bilirubin Total 0.5 mg/dL (0.0-1.0); Blood Urea Nitrogen 15 mg/dL (9-16); Calcium 8.8 mg/dL (8.4-10.2); Carbon Dioxide 24 mmol/L (22-29); Chloride 107 mmol/L (96-108); Creatinine Clr Calc Pharmacy 68.7; Estimated Glomerular Filt Rate > 60; Glucose Random 100 mg/dL (60-115); Potassium 4.1 mmol/L (3.3-5.1); Sodium 140 mmol/L (135-145); Total Protein 5.8 g/dL (6.5-8.0)
[2023-11-06 07:54] VITALS: BP 138/77; PULSE 61; RESP 18; TEMP 36.6; O2SAT 97
[2023-11-06] MEDS: 0.9 % Sodium Chloride Flush 3 ML SYRINGE IVFLUSH (08:17)
[2023-11-06] MEDS: Multivitamin TABLET 1 TAB PO (08:17)
--- NOTE | 2023-11-06 11:09 | P.DS_ITS ---
DS: Providers Provider Date of Service: 11/06/23 Date of admission: 11/03/23 02:31 Date of discharge: 11/06/23 Primary care physician: Sho Lyman NP Consults: 11/03/23 02:36 Consult to Urology Routine Consulting Provider: [facility] [place] [facility] Reason for consultation: nephrolithiasis 11/04/23 12:22 Consult to Infectious Diseases Routine Consulting Provider: [facility] [place] [facility] Reason for consultation: gram neg bacteremia DS: Diagnosis Discharge Diagnosis (1) E coli bacteremia: Status: Acute (2) BPH (benign prostatic hyperplasia): Status: Acute (3) Hydronephrosis, right: Status: Acute (4) Pyelonephritis of right kidney: Status: Acute (5) Ureterolithiasis: Status: Acute (6) Sepsis: Status: Acute (7) Acute kidney injury (nontraumatic): Status: Acute DS: Summary Hospital Course Hospital Course: From the history and physical by the admitting hospitalist, Tanisha Reyes MD, 11/03/23: This is a 58-year-old male with pertinent history of hep C cirrhosis who presents to the emergency department for evaluation of flank pain. Patient is Portuguese speaking and history obtained with the help his . Patient started having right-sided flank pain 2 days ago. Initially it was intermittent but progressed to being constant. Also has associated nausea and urinary hesitancy. No history of kidney stones in the past. Does have a right benign kidney cyst. Patient ate a sandwich with salmon 2 days ago and had nausea and vomiting soon after. Patient has also developed fevers and chills. No chest discomfort, palpitations, shortness of breath, changes in bowel habits. In the emergency department, patient was found to be septic and imaging concerning for calculus at the right ureterovesical junction with moderate right hydronephrosis. 58yo M with HCV cirrhosis admitted to the medical-surgical floor for sepsis due to pyelonephritis due to obstructing 4.5mm R UVJ stone causing hydronephrosis. Creatinine elevated to 1.71 on admission. Ultimately found to have E. coli bacteremia. Hospital course by problem: sepsis due to pyelonephritis due to obstructing ureterolith with E coli ba cteremia - BCx + UCx grew quinolone-resistant E. coli; on ceftriaxone appropriately since 11/02. Per ID consultation, total 14 day course of antibiotic to be completed with cefuroxime; discharged on 12 days of cefuroxime. Urology consulted. Pain and fever completely resolved and the patient likely passed the stone on his own, so no operative intervention was indicated. Outpatient follow-up with Urology along with a repeat US were recommended to be done in 6-8 weeks. TOBIAS - Resolved; was likely due to sepsis + obstructing stone. Creatinine improved to 1.18 with IV fluid hydration. Time Attestation Discharge Coordination Time (in mins): 40 Quality: Safe Use of Opioids Does Pt have an Active Cancer Diagnosis on the Problem List?: No Quality: Stroke Does the patient have a stroke diagnosis?: No Physical Exam Vital Signs: Vital Signs: Last Vital Signs Temp 97.8 F 11/06/23 07:54 Pulse 61 11/06/23 07:54 Resp 18 11/06/23 07:54 BP 138/77 11/06/23 07:54 Pulse Ox 97 11/06/23 07:54 O2 Del Method Room Air 11/06/23 07:54 BMI result Body Mass Index 26.7 Gen: in no acute distress HEENT: sclera anicteric, moist mucus membranes Neck: supple Lungs: clear to auscultation bilaterally Heart: regular rate and rhythm, no murmurs Abd: soft, non-tender, non-distended Ext: no edema Skin: warm/well-perfused Neuro: alert and oriented x3, no focal findings Psych: appropriate affect DS: Data Data Completed and Pending Completed studies during hospitalization [Text1]: Laboratory Results WBC 5.1 X10*3/uL (4.8-10.8) 11/06/23 05:13 RBC 4.60 X10*6/uL (4.60-5.80) 11/06/23 05:13 Hgb 13.7 g/dl (14.0-18.0) L 11/06/23 05:13 Hct 40.8 % (42.0-52.0) L 11/06/23 05:13 MCV 88.7 fL (80.0-98.0) 11/06/23 05:13 MCH 29.8 pg (27.0-33.0) 11/06/23 05:13 MCHC 33.6 g/dl (31.0-36.0) 11/06/23 05:13 RDW 12.4 % (11.0-16.0) 11/06/23 05:13 Plt Count 97 X10*3/uL (160-400) L D 11/06/23 05:13 MPV 12.1 fL (9.4-12.4) 11/06/23 05:13 Immature Gran % (Auto) 0.7 % (0.0-0.4) H 11/04/23 08:45 Neut % (Auto) 78.0 % (45-73) H 11/04/23 08:45 Lymph % (Auto) 9.3 % (20-40) L 11/04/23 08:45 [place] % (Auto) 9.9 % (2-11) 11/04/23 08:45 Eos % (Auto) 1.7 % (0-4) 11/04/23 08:45 Baso % (Auto) 0.4 % (0-2) 11/04/23 08:45 Lymph # (Auto) 0.7 X10*3/uL (1.2-4.9) L 11/04/23 08:45 [place] # (Auto) 0.7 X10*3/uL (0.1-1.2) 11/04/23 08:45 Eos # (Auto) 0.1 X10*3/uL (0.0-0.4) 11/04/23 08:45 Baso # (Auto) 0.0 X10*3/uL (0.0-0.2) 11/04/23 08:45 Abs Immat Gran (auto) 0.05 X10*3/uL (0.00-0.03) H 11/04/23 08:45 Absolute Neuts (auto) 5.5 x10*3/uL (2.0-8.3) 11/04/23 08:45 Absolute Nucleated RBC 0.000 X10*3/uL (0.0-0.012) 11/06/23 05:13 Nucleated RBC % (auto) 0.0 /100WBC (0.0-0.2) 11/06/23 05:13 Smear Tech's Comments VERIFIED 11/02/23 20:38 Sodium 140 mmol/L (135-145) 11/06/23 05:13 Potassium 4.1 mmol/L (3.3-5.1) 11/06/23 05:13 Chloride 107 mmol/L (96-108) 11/06/23 05:13 Carbon Dioxide 24 mmol/L (22-29) 11/06/23 05:13 Anion Gap 13 (12-20) 11/06/23 05:13 BUN 15 mg/dL (9-16) 11/06/23 05:13 Creatinine 1.18 mg/dL (0.5-1.4) 11/06/23 05:13 Estim Creat Clear Calc 68.7 11/06/23 05:13 Estimated GFR > 60 11/06/23 05:13 Random Glucose 100 mg/dL (60-115) 11/06/23 05:13 Lactic Acid 1.1 mmol/L (0.5-2.0) 11/03/23 00:36 Calcium 8.8 mg/dL (8.4-10.2) 11/06/23 05:13 Total Bilirubin 0.5 mg/dL (0.0-1.0) 11/06/23 05:13 Direct Bilirubin 0.5 mg/dL (0.0-0.5) 11/03/23 04:36 AST 21 U/L (5-37) 11/06/23 05:13 ALT 22 U/L (0-40) 11/06/23 05:13 Alkaline Phosphatase 50 U/L (39-117) 11/06/23 05:13 Total Protein 5.8 g/dL (6.5-8.0) L 11/06/23 05:13 Albumin 3.2 g/dL (3.5-5.0) L 11/06/23 05:13 Lipase 6 U/L (8-78) L 11/02/23 20:37 Urine Color Dark Yellow 11/02/23 20:37 Urine Appearance Turbid 11/02/23 20:37 Urine pH 5.5 (5.0-9.0) 11/02/23 20:37 Ur Specific [place] 1.025 (1.005-1.025) 11/02/23 20:37 Urine Protein 100 (2+) mg/dL (Neg-Trace) H 11/02/23 20:37 Urine Glucose (UA) Negative mg/dL (Negative) 11/02/23 20:37 Urine Ketones Trace mg/dL (Negative) 11/02/23 20:37 Urine Blood Large (3+) (Negative) H 11/02/23 20:37 Urine Nitrite Positive (Negative) H 11/02/23 20:37 Ur Leukocyte Esterase Large (3+) (Negative) H 11/02/23 20:37 Urine RBC 3-5 /HPF (0-2) H 11/02/23 20:37 Urine WBC >50 /HPF (0-5) H 11/02/23 20:37 Ur Squamous Epith Cells 3-5 /HPF (0-2) 11/02/23 20:37 Urine Bacteria 4+ (None Seen) 11/02/23 20:37 Hyaline Casts 0-2 /LPF (0-2) 11/02/23 20:37 Influenza Type A (PCR) NEGATIVE (Negative) 11/02/23 20:37 Influenza Type B (PCR) NEGATIVE (Negative) 11/02/23 20:37 RSV RNA Qual (PCR) NEGATIVE (Negative) 11/02/23 20:37 SARS-CoV-2 RNA (RT-PCR) NEGATIVE (Negative) 11/02/23 20:37 Impressions Chest X-Ray 11/02/23 19:56 IMPRESSION: Unremarkable examination. Electronically signed by: Cindy Zhang MD 11/02/2023 08:34 PM EDT RP Abdomen/Pelvis CT 11/03/23 00:58 IMPRESSION: 1. Single 4.5 mm x 2 mm calculus at the right ureterovesicular junction associated with moderate-marked right hydronephrosis and ureterectasis. No additional urolithiasis. 2. Cholelithiasis. 3. Mild diffuse enlargement of the prostate. Electronically signed by: Anatoly López MD 11/03/2023 01:50 AM EDT RP Microbiology 11/03/23 00:38 Blood - Venous Blood Culture - Final Escherichia coli 11/03/23 00:36 Blood - Venous Blood Culture - Final Escherichia coli 11/02/23 20:37 Blood - Venous Blood Culture - Final Escherichia coli 11/02/23 20:37 Urine clean catch - Clean Catch Midstream Urine Culture - Final Escherichia coli 11/03/23 04:36 Blood - Venous Blood Culture - Preliminary No growth after 48 hours. Discharge Plan Discharge Anticipated Discharge Date/Time: 11/06/23 11:03 Patient Disposition: Home, Self-Care Discharge Diagnosis: E. coli bacteremia/pyelonephritis due to kidney stone Referrals: Carter Edward MD [Physician] - 1 Month Sho Lyman NP [Primary Care Provider] - 1 Week Discharge Medications: New tamsulosin [Flomax] 0.4 mg capsule 0.4 mg PO BEDTIME 90 Days Qty: 90 0RF tamsulosin 0.4 mg Capsule 0.8 mg PO BEDTIME Qty: 60 0RF cefuroxime axetil 500 mg tablet 500 mg PO BID Qty: 24 0RF Continued multivitamin Tablet 1 tab PO DAILY Discharge Orders: Discharge Order (Routine); Ordered 11/06/23 Ordered By: Gilda Baldwin Diet: Advance to usual diet Activity on Discharge: As tolerated Stand Alone Forms: Patient Portal Discharge page, Work/School Release Print Language: Citizen Of [place] Care Plan Goals: recovery from infection Health Concerns: E. coli bacteremia/pyelonephritis due to kidney stone Plan of Treatment: Take antibiotics as prescribed: cefuroxime axetil 500 mg twice daily for 12 days Drink plenty of water Take tamsulosin 0.8 mg daily at bedtime Follow up with [facility] in 1 month; will need repeat US then Please follow up with your primary care doctor within 1 week. Return to the hospital if you experience recurrent or worsening symptoms. Assessment: See Discharge Summary.
--- NOTE | 2023-11-06 11:26 | MHC.CM.PN ---
PT DCD HOME SELF CAre
== END 2023-11-06 12:07 | disposition home or self-care (01) | DRG 872 ==
LOC: HO.ED 11-03 02:25 → HO.EDOVER 11-03 02:38 → HO.S3 11-04 15:37
PROVIDERS: Family Medicine; Physician Assistant; Admitting Provider Student in an Organized Health Care Education/Training Program; Emergency Provider Emergency Medicine; PCP Nurse Practitioner Family; Visit Provider Family Medicine
DX: A41.9 Sepsis, unspecified organism (principal); N13.6 Pyonephrosis; Z16.23 Resistance to quinolones and fluoroquinolones; N17.9 Acute kidney failure, unspecified; B96.20 Unspecified Escherichia coli [E. coli] as the cause of diseases classified elsewhere; N40.0 Benign prostatic hyperplasia without lower urinary tract symptoms; D69.59 Other secondary thrombocytopenia; B19.20 Unspecified viral hepatitis C without hepatic coma; Z20.822 Contact with and (suspected) exposure to COVID-19; Z79.899 Other long term (current) drug therapy
CPT/HCPCS: 0241U; 36415; 71046; 74176; 80048; 80053; 80076; 81001; 83605; 83690; 85025; 85027; 87040; 87077; 87086; 87088; 87186; 87205; 99285; J0696; J2270; J2405; J7120

== ENCOUNTER → 2023-11-03 02:31 | Outpatient (BNV) | payer OTHER, SELFPAY | PROVIDERS: Admitting Provider Student in an Organized Health Care Education/Training Program; Emergency Provider Emergency Medicine; PCP Nurse Practitioner Family; Visit Provider Urology | DX: R78.81 Bacteremia (principal); B96.20 Unspecified Escherichia coli [E. coli] as the cause of diseases classified elsewhere; N39.0 Urinary tract infection, site not specified; N40.0 Benign prostatic hyperplasia without lower urinary tract symptoms; N13.30 Unspecified hydronephrosis | CPT/HCPCS: 99222; 99232 ==

== ENCOUNTER → 2023-11-03 02:31 | Outpatient (BNV) | payer OTHER, SELFPAY | PROVIDERS: Admitting Provider Student in an Organized Health Care Education/Training Program; Emergency Provider Emergency Medicine; PCP Nurse Practitioner Family; Visit Provider Internal Medicine | DX: N40.0 Benign prostatic hyperplasia without lower urinary tract symptoms (principal); N13.30 Unspecified hydronephrosis; N10 Acute pyelonephritis | CPT/HCPCS: 99222 ==

== ENCOUNTER → 2023-11-03 02:31 | Outpatient (BNV) | payer OTHER, SELFPAY | PROVIDERS: Admitting Provider Student in an Organized Health Care Education/Training Program; Emergency Provider Emergency Medicine; Visit Provider Student in an Organized Health Care Education/Training Program | DX: A41.51 Sepsis due to Escherichia coli [E. coli] (principal); N17.9 Acute kidney failure, unspecified; N13.30 Unspecified hydronephrosis; N12 Tubulo-interstitial nephritis, not specified as acute or chronic; N20.1 Calculus of ureter | CPT/HCPCS: 99223; 99232; 99239; 99499 ==

== ENCOUNTER 2023-12-14 09:46 | Outpatient (REF) | payer OTHER, SELFPAY ==
--- NOTE | ~2023-12-14 | US_ITS ---
EXAMINATION: US RETROPERITONEAL LIMITED (RENAL ONLY) CLINICAL INFORMATION: Acute kidney failure, unspecified. COMPARISON: CT abdomen and pelvis 11/03/2023. TECHNIQUE: Real-time imaging of the kidneys. FINDINGS: RIGHT KIDNEY: 12.0 x 4.1 x 5.3 cm (SAG x AP x TRV). The kidney is normal in size, contour, and echogenicity. Renal cortical thickness is normal. There is mild right renal hydronephrosis.. Simple cyst 4.2 x 3.6 x 4.2 cm LEFT KIDNEY: 11.7 x 5.6 x 4.9 cm (SAG x AP x TRV). The kidney is normal in size, contour, and echogenicity. Renal cortical thickness is normal. No calculi or focal parenchymal lesions. No hydronephrosis. ADDITIONAL FINDINGS: 6 mm partially obstructing stone at the UVJ on the right side seen again correlate with the stone seen on the recent CT scan. US/US renal BI IMPRESSION: * Mild right renal hydronephrosis. * Partially obstructing 6 mm stone at the right UVJ. Electronically signed by: Miguel Ángel Elaine MD 01/26/2024 07:27 AM EST
== END 2023-12-14 09:47 | disposition home or self-care (01) ==
LOC: HO.US 09:46
PROVIDERS: PCP Nurse Practitioner Family; Visit Provider Urology
DX: N17.9 Acute kidney failure, unspecified (principal); N12 Tubulo-interstitial nephritis, not specified as acute or chronic; N39.0 Urinary tract infection, site not specified; N13.30 Unspecified hydronephrosis; N10 Acute pyelonephritis; N20.1 Calculus of ureter
CPT/HCPCS: 76775

== ENCOUNTER 2024-01-05 14:00 | Outpatient (AMB) | payer OTHER, SELFPAY ==
--- NOTE | 2024-01-05 14:01 | MHC.OFFVIS ---
Intake Visit Reasons: ER follow up- US Intake Note: Patient is present for ER F/U US Urology Medication:TAMSULOSIN Antibiotic Allergy:NONE Blood Thinner:NONE Class 1 Owner Operator Required: No Allergies procaine [From Novocain] Allergy (Verified 01/05/24 14:02) Anaphylaxis Medication List - Last Reconciled 01/05/24 by Phillip Duncan MD cefuroxime axetil 500 mg PO BID multivitamin 1 tab PO DAILY tamsulosin (Flomax) 0.4 mg PO BEDTIME HPI Comments Details: Deann 58 year old russain speaking male, here with his niece who interpreted for him. He was hospitalized in October for pyelonephritis and obstructing right ureteral stone. Follow-up renal ultrasound-the stone is still present. No hydronephrosis. The patient is clinically asymptomatic. He was given a strainer. If he does not pass the stone he is agreeable to ureteroscopy with laser lithotripsy. Flomax sent to the pharmacy. Renal US --12/14/23-- films reviewed- Right Ureteral stone urinary jet seen, no hydronephrosis PFSH Medical History Cirrhosis Social History Household Members: Spouse Housing: Apartment Do you presently have visiting nurse or other home services: No Alcohol intake: never Patient Tobacco Use Status: Tobacco use Unknown Advance Directives Date on File: 11/04/23 service: No Review of Systems Const All systems reviewed & are unremarkable except as noted in HPI and below Reports no additional complaints Eyes Reports no additional complaints ENT Reports no additional complaints Card Reports no additional complaints Resp Reports no additional complaints GI Reports no additional complaints Reports as per HPI Musc Reports no additional complaints Skin/Breast Reports system reviewed and no additional complaints, except as documented Neuro Reports no additional complaints Psych Reports no additional complaints Endo Reports no additional complaints Michael/Lymph Reports no additional complaints Aller/Immun Reports no additional complaints Results AMB Urinalysis, Automated UA Leukoctes 500 Bernard/uL Last Edit by MICAH Fox on 01/05/24 14:15 UA Nitrite Negative Last Edit by MICAH Fox on 01/05/24 14:15 UA Urobilinogen 0.2 mg/dL Last Edit by MICAH Fox on 01/05/24 14:15 UA Protein 15 mg/dL Last Edit [facility] 01/05/[facility] 14:15 UA pH 6.0 Last Edit by Shayy Lindsey [facility] on 01/05/24 14:15 UA Blood 25 David/uL Last Edit by Shayy Lindsey [facility] on 01/05/24 14:15 UA Specific [place] 1.020 Last Edit by Shayy Lindsey [facility] on 01/05/24 14:15 UA Ketone Negative Last Edit by Shayy Lindsey [facility] on 01/05/24 14:15 UA Bilirubin 0 mg/dL Last Edit by MICAH Fox on 01/05/24 14:15 UA Glucose 0 mg/dL Last Edit by Shayy Lindsey [facility] on 01/05/24 14:15 Results Reviewed Results Reviewed: Laboratory Last Values Urine pH (Auto) 6.0 01/05/24 14:15 Specific [place] (Auto) 1.020 01/05/24 14:15 Urine Protein (Auto) 15 mg/dL 01/05/24 14:15 Glucose (UA)(Auto) 0 mg/dL 01/05/24 14:15 Urine Ketones (Auto) Negative 01/05/24 14:15 Urine Blood (Auto) 25 David/uL 01/05/24 14:15 Urine Nitrite (Auto) Negative 01/05/24 14:15 Urine Bilirubin (Auto) 0 mg/dL 01/05/24 14:15 Urine Urobilinogen (Auto) 0.2 mg/dL 01/05/24 14:15 Leukocyte Esterase (Auto) 500 Bernard/uL 01/05/24 14:15 Renal US --12/14/23-- films reviewed- Right Ureteral stone urinary jet seen, no hydronephrosis Date of Service: 11/03/23 CT ABDOMEN AND PELVIS WITHOUT CONTRAST CLINICAL INFORMATION: Flank pain. No rule out kidney stone. COMPARISON: None available. TECHNIQUE: Multidetector volumetric imaging was performed from the superior aspect of the liver through the pubic symphysis. Sagittal and coronal reformatted images were obtained on the technologist's workstation. This CT examination was performed using dose optimization techniques as appropriate, variously including the following: *Automated exposure control *Adjustment of mA and/or kV according to patient size (this includes techniques or standardized protocols for targeted exams where dose is matched to indication/reason for exam; i.e. extremities or head) *Use of iterative reconstruction technique DLP: 615 mGy-cm FINDINGS: LUNG BASES: Mild bibasilar posterior dependent atelectasis. LIVER, GALLBLADDER, AND BILIARY TREE: 1.7 cm diameter eggshell calcification of the gallbladder lumen consistent with cholelithiasis. Normal appearance of the liver. PANCREAS: Unremarkable. SPLEEN: Unremarkable. ADRENAL GLANDS: Unremarkable. KIDNEYS AND URETERS: A single 4.5 mm x 2 mm calculus is present at the right ureterovesicular junction. Moderate-marked right hydronephrosis and ureterectasis is present. Moderate right perinephric inflammatory changes are identified. No additional urolithiasis identified. Incidental note made of a 3.6 cm rounded benign-appearing low-density simple cyst within the right kidney requiring no additional imaging follow-up. BLADDER: Decompressed GASTROINTESTINAL TRACT: The appendix is not visualized. Curvilinear density is present at the base of the cecum and may represent suture material related to prior appendectomy. No free intraperitoneal fluid or gas collections. ABDOMINAL WALL: No significant hernia is appreciated. LYMPH NODES: Normal. VASCULAR: Mild scattered calcific atherosclerosis PELVIC VISCERA: The prostate measures 4 cm in AP dimension, slightly above the expected limits of normal size. OSSEOUS STRUCTURES: Incidental note made of a synovial inclusion cyst associated with the anterior margin of the right femoral head. Partially visualized mild posterior broad-based disc bulge L5-S1. IMPRESSION: 1. Single 4.5 mm x 2 mm calculus at the right ureterovesicular junction associated with moderate-marked right hydronephrosis and ureterectasis. No additional urolithiasis. 2. Cholelithiasis. 3. Mild diffuse enlargement of the prostate. Assessment & Plan Assessment & Plan (1) Acute kidney injury (nontraumatic): Code(s): N17.9 - Acute kidney failure, unspecified Category: Medical (2) Pyelonephritis of right kidney: Code(s): N12 - Tubulo-interstitial nephritis, not specified as acute or chronic Category: Medical (3) Ureterolithiasis: Code(s): N20.1 - Calculus of ureter Category: Medical Plan Pt given strainer, If doesn't pass stone, Cysto, Right ureteroscopy laser lithotripsy, stent Orders: Orders AMB Urinalysis Automated Today Z13.9 - Encounter for screening, unspecified Medications: New tamsulosin (Flomax) 0.4 mg PO BEDTIME 20 caps 0RF Patient Instructions: The patient had an opportunity to ask questions regarding treatment plan. The patient expressed understanding and agreement with the above treatment plan. The patient is aware they should contact our office by phone for worsening of their current condition or the appearance of new symptoms. Compliance is encouraged with any medications and followup testing that is ordered. It is a privilege to be allowed the opportunity to participate in the urologic care of your patient. If you have any questions or concerns regarding treatment for the above conditions please do not hesitate to contact me. The office telephone contact is [phone]. This note is constructed in part using voice recognition software. While every effort has been made to ensure accuracy supervisor drapery hanging errors may have been included. Yours sincerely, Phillip Duncan MD Coding Level of Care Code Est Pt Level 4 (30120) Diagnoses Acute kidney injury (nontraumatic) N17.9 Pyelonephritis of right kidney N12 Ureterolithiasis N20.1
== END 2024-01-05 14:52 | disposition home or self-care (01) ==
PROVIDERS: PCP Nurse Practitioner Family; Visit Provider Urology
DX: N17.9 Acute kidney failure, unspecified (principal); N12 Tubulo-interstitial nephritis, not specified as acute or chronic; N20.1 Calculus of ureter; Z13.9 Encounter for screening, unspecified
CPT/HCPCS: 99214

== ENCOUNTER → 2024-01-05 14:00 | Outpatient (BNVA) | payer OTHER, SELFPAY | PROVIDERS: PCP Nurse Practitioner Family; Visit Provider Urology | DX: N17.9 Acute kidney failure, unspecified (principal); N12 Tubulo-interstitial nephritis, not specified as acute or chronic; N20.1 Calculus of ureter | CPT/HCPCS: 81003 ==

== ENCOUNTER 2024-03-02 09:32 | Outpatient (REF) | payer OTHER, SELFPAY | END 2024-03-02 09:33 | disposition home or self-care (01) | LOC: HO.US 09:32 | PROVIDERS: PCP Nurse Practitioner Family; Visit Provider Urology | DX: N17.9 Acute kidney failure, unspecified (principal); N23 Unspecified renal colic; N13.30 Unspecified hydronephrosis; N20.1 Calculus of ureter | CPT/HCPCS: 76770 ==

== ENCOUNTER 2024-03-22 09:24 | Outpatient (REF) | payer OTHER, SELFPAY ==
[2024-03-29 02:38] LABS: Stone Source KIDNEY STONE
== END 2024-03-22 09:25 | disposition home or self-care (01) ==
LOC: HO.LNP 09:24
PROVIDERS: PCP Nurse Practitioner Family; Visit Provider Urology
DX: N39.0 Urinary tract infection, site not specified (principal); B96.20 Unspecified Escherichia coli [E. coli] as the cause of diseases classified elsewhere; N20.0 Calculus of kidney
CPT/HCPCS: 81003; 82365; 87086; 87088; 87186; 88300

== ENCOUNTER 2024-03-22 09:24 | Outpatient (AMB) | payer OTHER, SELFPAY ==
--- NOTE | 2024-03-22 09:29 | MHC.OFFVIS ---
Intake Visit Reasons: US results Intake Note: Patient is present for US Results Urology Medication:Tamsulosin Antibiotic Allergy:NONE Blood Thinner:NONE Senior Cobol Developer Required: No Allergies procaine [From Novocain] Allergy (Verified 03/22/24 09:30) Anaphylaxis HPI Comments Details: 03/22/24-- brought in stone gave diet sheet nitrite positive - urine c/s 6 week fu with nurse recheck urine 01/05/24--Erasti 58 year old russain speaking male, here with his niece who interpreted for him. He was hospitalized in October for pyelonephritis and obstructing right ureteral stone. Follow-up renal ultrasound-the stone is still present. No hydronephrosis. The patient is clinically asymptomatic. He was given a strainer. If he does not pass the stone he is agreeable to ureteroscopy with laser lithotripsy. Flomax sent to the pharmacy. Renal US --12/14/23-- films reviewed- Right Ureteral stone urinary jet seen, no hydronephrosis PFSH Medical History Cirrhosis Social History Household Members: Spouse Housing: Apartment Do you presently have visiting nurse or other home services: No Alcohol intake: never Patient Tobacco Use Status: Tobacco use Unknown Advance Directives Date on File: 11/04/23 service: No Results AMB Urinalysis, Automated UA Leukoctes 500 [place]/uL Last Edit by Sonia Davis on 03/22/24 09:43 UA Nitrite Positive Last Edit by Sonia Davis on 03/22/24 09:43 UA Urobilinogen 0.2 mg/dL Last Edit by Sonia Davis on 03/22/24 09:43 UA Protein 15 mg/dL Last Edit by Sonia Davis on 03/22/24 09:43 UA pH 6.0 Last Edit by Sonia Davis on 03/22/24 09:43 UA Blood 25 David/uL Last Edit by Sonia Davis on 03/22/24 09:43 UA Specific [place] 1.025 Last Edit by Sonia Davis on 03/22/24 09:43 UA Ketone Negative Last Edit by Sonia Davis on 03/22/24 09:43 UA Bilirubin 0 mg/dL Last Edit by Sonia Davis on 03/22/24 09:43 UA Glucose 0 mg/dL Last Edit by Sonia Davis on 03/22/24 09:43 Results Reviewed Results Reviewed: Laboratory Last Values Urine pH (Auto) 6.0 03/22/24 09:41 Specific [place] (Auto) 1.025 03/22/24 09:41 Urine Protein (Auto) 15 mg/dL 03/22/24 09:41 Glucose (UA)(Auto) 0 mg/dL 03/22/24 09:41 Urine Ketones (Auto) Negative 03/22/24 09:41 Urine Blood (Auto) 25 David/uL 03/22/24 09:41 Urine Nitrite (Auto) Positive 03/22/24 09:41 Urine Bilirubin (Auto) 0 mg/dL 03/22/24 09:41 Urine Urobilinogen (Auto) 0.2 mg/dL 03/22/24 09:41 Leukocyte Esterase (Auto) 500 [place]/uL 03/22/24 09:41 Assessment & Plan Assessment & Plan Orders: Orders AMB Urinalysis Automated Today Z13.9 - Encounter for screening, unspecified Coding
== END 2024-03-22 10:38 | disposition home or self-care (01) ==
PROVIDERS: PCP Nurse Practitioner Family; Visit Provider Urology
DX: Z13.9 Encounter for screening, unspecified (principal)

== ENCOUNTER 2024-05-01 09:36 | Outpatient (REF) | payer OTHER, SELFPAY | END 2024-05-01 09:37 | disposition home or self-care (01) | LOC: HO.LAB 09:36 | PROVIDERS: PCP Nurse Practitioner Family; Visit Provider Urology | DX: A41.9 Sepsis, unspecified organism (principal); N39.0 Urinary tract infection, site not specified | CPT/HCPCS: 81003; 87086; 87088; 87186 ==

== ENCOUNTER 2024-05-01 09:36 | Outpatient (AMB) | payer OTHER, SELFPAY ==
--- NOTE | 2024-05-01 09:59 | AM.OFFVISNUR ---
Intake Visit Reasons: 6w culture Allergies procaine [From Novocain] Allergy (Verified 03/22/24 09:30) Anaphylaxis Nursing Note Patient presents to office for repeat urine check after having infection. Patient UA nitrate positive. Culture ordered, sample to be sent to lab. Reviewed with Dr. Edward as Dr. Jenkins not in office- start augmentin TID for 7 days. Script sent. Patient aware. Patient to have follow up with as scheduled. Patient agreeable with plan at this time Results AMB Urinalysis, Automated UA Leukoctes 500 Bernard/uL Last Edit by Luigi Sinclair LPN on 05/01/24 10:00 UA Nitrite Positive Last Edit by Luigi Sinclair LPN on 05/01/24 10:00 UA Urobilinogen 3.5 mg/dL Last Edit by Luigi Sinclair LPN on 05/01/24 10:00 UA Protein 0.1 mg/dL Last Edit by Luigi Sinclair LPN on 05/01/24 10:00 UA pH 5.5 Last Edit by Luigi Sinclair LPN on 05/01/24 10:00 UA Blood 10 David/uL Last Edit by Luigi Sinclair LPN on 05/01/24 10:00 UA Specific Manson 1.020 Last Edit by Luigi Sinclair LPN on 05/01/24 10:00 UA Ketone Negative Last Edit by Luigi Sinclair LPN on 05/01/24 10:00 UA Bilirubin 0 mg/dL Last Edit by Luigi Sinclair LPN on 05/01/24 10:00 UA Glucose 0 mg/dL Last Edit by Luigi Sinclair LPN on 05/01/24 10:00 Assessment & Plan Assessment & Plan Orders: Orders AMB Urinalysis Automated Today A41.9 - Sepsis, unspecified organism, N40.0 - Benign prostatic hyperplasia without lower urinary tract symptoms Urine Culture Today A41.9 - Sepsis, unspecified organism, N39.0 - Urinary tract infection, site not specified Coding
== END 2024-05-01 11:20 | disposition home or self-care (01) ==
PROVIDERS: PCP Nurse Practitioner Family; Visit Provider Urology
DX: A41.9 Sepsis, unspecified organism (principal); N40.0 Benign prostatic hyperplasia without lower urinary tract symptoms

== ENCOUNTER → 2024-05-24 09:37 | Outpatient (BNVA) | payer OTHER, SELFPAY | PROVIDERS: PCP Nurse Practitioner Family; Visit Provider Urology ==

== ENCOUNTER 2024-06-29 10:30 | Outpatient (REF) | payer OTHER, SELFPAY ==
[2024-06-29 11:40] LABS: Appearance Urine Clear; Color Urine Yellow; Glucose Urine UA Negative (Negative); Leukocyte Esterase Urine Moderate (2+) (Negative); Nitrite Urine Positive (Negative); PH 5.5 (5.0-9.0); Specific Gravity - Urine 1.015 (1.005-1.025); UMIC TRIGGER UA YES; Urine Blood Trace (Negative); Urine Ketones Negative (Negative); Urine Protein Negative (Neg-Trace)
[2024-06-29 11:44] LABS: Bacteria Urine 4+ (None Seen); Hyaline Casts Urine 0-2 /LPF (0-2); RBC Urine 0-2 /HPF (0-2); Squamous Epithelial Cell Urine 0-2 /HPF (0-2); WBC Urine 21-50 /HPF (0-5)
== END 2024-06-29 10:31 | disposition home or self-care (01) ==
LOC: HO.LAB 10:30
PROVIDERS: PCP Nurse Practitioner Family; Visit Provider Urology
DX: N39.0 Urinary tract infection, site not specified (principal)
CPT/HCPCS: 81001; 87086; 87088; 87186

== ENCOUNTER 2025-02-26 11:45 | Outpatient (REF) | payer OTHER, SELFPAY ==
[2025-02-26 13:11] LABS: Prostate Specific Antigen 2.30 ng/mL (<0.05-4.0)
== END 2025-02-26 11:46 | disposition home or self-care (01) ==
LOC: HO.LAB 11:45
PROVIDERS: PCP Nurse Practitioner Family; Visit Provider Urology
DX: N40.0 Benign prostatic hyperplasia without lower urinary tract symptoms (principal); N10 Acute pyelonephritis; N20.1 Calculus of ureter; Z12.5 Encounter for screening for malignant neoplasm of prostate
CPT/HCPCS: 36415; 84153

== ENCOUNTER 2025-02-27 12:04 | Outpatient (REF) | payer OTHER, SELFPAY ==
--- NOTE | ~2025-02-27 | US_ITS ---
EXAMINATION: US KIDNEY BILATERAL HISTORY: N17.9 - Acute kidney failure, unspecified TECHNIQUE: Real-time grayscale ultrasound imaging of the kidneys was performed and images were reviewed. COMPARISON: Comparison is made with the prior examination dated 03/02/2024. FINDINGS: Right kidney: The right kidney measures 12.3 x 4.9 x 4.6 cm. Renal parenchymal echotexture and thickness are normal. There is a 5.3 x 5.0 x 5.4 cm upper pole cyst. There is no hydronephrosis or renal calculi. Left Kidney: The left kidney measures 11.7 x 5.7 x 4.6 cm. Renal parenchymal echotexture and thickness are normal. There are no masses. There is a 2 mm nonobstructing calculus at the lower pole. There is no hydronephrosis. US/US renal BI IMPRESSION: 5.3 x 5.0 x 5.4 cm right upper pole renal cyst. 2 mm nonobstructing calculus at the lower pole of the left kidney. Otherwise unremarkable renal ultrasound. Electronically signed by: Eloy Patino MD 02/27/2025 12:40 PM [facility]
== END 2025-02-27 12:05 | disposition home or self-care (01) ==
LOC: HO.US 12:04
PROVIDERS: PCP Nurse Practitioner Family; Visit Provider Urology
DX: N40.0 Benign prostatic hyperplasia without lower urinary tract symptoms (principal); N17.9 Acute kidney failure, unspecified; N13.2 Hydronephrosis with renal and ureteral calculous obstruction
CPT/HCPCS: 76775

== ENCOUNTER → 2025-02-27 12:07 | Outpatient (BNV) | payer OTHER, SELFPAY | PROVIDERS: PCP Nurse Practitioner Family; Visit Provider Radiology Diagnostic Radiology | DX: N17.9 Acute kidney failure, unspecified (principal); N28.1 Cyst of kidney, acquired; N20.0 Calculus of kidney | CPT/HCPCS: 76775 ==